=== PATIENT | female | born 1955 | race Caucasian/White ===

== ENCOUNTER → 2016-12-24 | Outpatient (CLI) | payer BC ==
[2016-12-24 11:20] LABS: CHLORIDE,CL 108 mmol/L (98-110); SODIUM,NA 142 mmol/L (136-146)
--- NOTE | 2016-12-24 14:07 | CR ---
EXAMINATION: Abdomen HISTORY: Pain COMPARISON: None TECHNIQUE: AP and upright views of the abdomen FINDINGS: There is no free air under the diaphragm. Lung bases appear clear. There is a mild amount of stool and gas-filled the colon without evidence of a small bowel obstruction. No abnormal calcifi cations project over the kidneys. There is a rounded calcification projecting over the right L3 para vertebral region with central lucency, likely a vascular calcification. The osseous structures appea r intact. No organomegaly. IMPRESSION: Grossly unremarkable abdominal films.
== END ==
LOC: MW.CHFP 10:41
PROVIDERS: ATTEND Nurse Practitioner Family
DX: R10.9 Unspecified abdominal pain (principal)
CPT/HCPCS: 36415; 74020; 74020-26; 80053; 81001; 85025; 86677

== ENCOUNTER 2019-06-18 22:47 | Emergency (ER) | payer MEDICARE, OTHER ==
[2019-06-18] MEDS ORDERED: Sodium Chloride 0.9% 2.5 ML Syringe FLUSH PRN (23:02)
[2019-06-18] MEDS ORDERED: Sodium Chloride 0.9% 10 ML Syringe FLUSH PRN (23:02)
[2019-06-18] MEDS ORDERED: Sodium Chloride 0.9% 1,000 ML IV ONE (23:10)
[2019-06-18] MEDS ORDERED: Morphine 2 MG/ML Syringe IVPUSH ONE (23:10)
[2019-06-18] MEDS ORDERED: Pantoprazole 40 MG Vial IVPUSH ONE (23:10)
[2019-06-18] MEDS ORDERED: Ondansetron 4 MG/2 ML SDV IVPUSH ONE (23:10)
--- NOTE | 2019-06-18 23:15 | EDM.PDOC ---
ED HPI GENERAL MEDICAL PROBLEM - General Chief Complaint: Chest Pain Stated Complaint: STOMACH AND BACK PAIN Time Seen by Provider: 06/18/19 22:55 - History of Present Illness INITIAL COMMENTS - FREE TEXT/NARRATIVE: HISTORY AND PHYSICAL: History of present illness: The patient is a 64-year-old female who follows with Dr. Baca in our clinic and also sees a balance sheet analyst at [facility] in [place] and has a history of hypertrophic cardiomyopathy hypercholesterolemia and kidney stones and presents with a 5 hour history of bilateral bandlike upper abdominal pain that radiates to her back. The patient says that she sees her balance sheet analyst just once a year and has had a heart catheter in the past but it was anywhere between 5 and 10 years ago. She sees her primary care physician regularly or checkups. The patient says that she had a normal day yesterday without any systemic issues upper respiratory symptoms chest pain or abdominal pain and was at home and started having this bandlike upper abdominal pain more in the epigastrium but radiating to bilateral upper quadrants. She said that it then seemed to be more underneath her left breast and then she could feel it in her upper back as well. She had no nausea or vomiting or diarrhea and had a normal bowel movement earlier today. She has not had black or bloody stools and has had no food intolerance. She's had no recent dietary changes nor she eaten any rich foods or fatty foods more than usual. She's had no fever with these symptoms no discrete chest pain and no shortness of breath. She denies any recent trauma and has only a total abdominal hysterectomy done laparoscopically as her abdominal surgical procedure. She says that she does not get heartburn very often but with this discomfort she felt like she had some gas like maybe if she burped she would feel better but she did not take any [id number] antacids or any pain medication. She did take Some Benadryl. She's had no urinary symptoms and she has no midline back pain or neurosensory changes or weakness in her extremities. She has no lower abdominal pain and she describes the pain as kind of a deep achy type of pain without burning. The patient has an AICD in place because of her hypertrophic cardiomyopathy Review of systems: As per history of present illness and below otherwise all systems reviewed and negative. Past medical history: As per history of present illness and as reviewed below otherwise noncontributory. Surgical history: As per history of present illness and as reviewed below otherwise noncontributory. Social history: No reported history of drug or alcohol abuse. Family history: As per history of present illness and as reviewed below otherwise noncontributory. Physical exam: General: Well-developed well-nourished overweight female who is nontoxic and vital signs are noted by me. She moves easily in the ED that when she goes from supine to sitting she feels some distress due to the abdominal pain. She is speaking clearly and is not breathless HEENT: Atraumatic, normocephalic, pupils reactive, negative for conjunctival pallor or scleral icterus, mucous membranes moist, throat clear, neck supple, nontender, trachea midline. Lungs: Clear to auscultation, breath sounds equal bilaterally, chest nontender. AICD is noted in the left upper chest wall Heart: S1S2, regular rate and rhythm no overt murmurs Abdomen: Soft, nondistended, bowel sounds are hypoactive and there is no tympany on percussion. There is diffuse upper abdominal tenderness mostly in the epigastrium but also bilateral upper quadrants right greater than left and there is no rebound or guarding Negative for masses or hepatosplenomegaly. Negative for costovertebral tenderness. Pelvis: Stable nontender. Genitourinary: Deferred. Rectal: Deferred. Extremities: Atraumatic, negative for cords or calf pain. Neurovascular unremarkable. No pedal edema or leg asymmetry Neuro: Awake, alert, oriented. Cranial nerves II through XII unremarkable. Cerebellum unremarkable. Motor and sensory unremarkable throughout. Exam nonfocal. Diagnostics: EKG CBC CMP INR troponin amylase lipase chest x-ray UA with reflex CT scan of the abdomen and pelvis Therapeutics: IV O2 monitor IV fluids Zofran and morphine Protonix All testing results were discussed with the patient and she was offered observation admission for cardiac as I told her that her presentation is very atypical for that but in light of her history that is still something that we are thinking about and cannot rule out here. She states that she would not like to be admitted and declines and would prefer outpatient follow-up in the clinic. Advised her on reasons to return. She currently says that she is not having the discomfort she presented the with. Impression: Upper abdominal pain Definitive disposition and diagnosis as appropriate pending reevaluation and review of above. Epigastric Pain Score (Numeric/FACES): 5 - Related Data Allergies Allergy/AdvReac Type Severity Reaction Status Date / Time house dust Allergy Difficulty Verified 06/18/19 22:57 Breathing latex Allergy Rash Verified 06/18/19 22:57 Home Meds: Home Meds Calcium Carb & Citrate/Vit D3 [Citracal + D ER] 2 tab PO BID 08/21/14 [History] Cetirizine HCl [Zyrtec] 10 mg PO DAILY 08/21/14 [History] Fish Oil/DHA/EPA [Fish Oil 1,200 MG] 1 tab PO BID 08/21/14 [History] Metoprolol Tartrate 12.5 mg PO BID 08/21/14 [History] Aspirin [Tracey Chewable] 81 mg PO DAILY 11/17/15 [History] Ezetimibe [Zetia] 10 mg PO BEDTIME 11/17/15 [History] Past Medical History Cardiovascular History: Reports: Cardiomyopathy, High Cholesterol, Pacemaker, Other (See Below) Other Cardiovascular History: defibrillator - Infectious Disease History Infectious Disease History: Reports: Chicken Pox - Past Surgical History HEENT Surgical History: Reports: Tonsillectomy Female Surgical History: Reports: Hysterectomy Musculoskeletal Surgical History: Reports: Other (See Below) Social & Family History - Family History Family Medical History: Noncontributory - Tobacco Use Smoking Status *Q: Never Smoker Second Hand Smoke Exposure: No - Caffeine Use Caffeine Use: Reports: Tea - Recreational Drug Use Recreational Drug Use: No ED ROS GENERAL - Review of Systems Review Of Systems: ROS reveals no pertinent complaints other than HPI. ED EXAM, GENERAL - Physical Exam Exam: See Below (See dictation) Course - Vital Signs Last Recorded V/S: Last Vital Signs Temp 35.7 C 06/18/19 22:59 Pulse 90 06/19/19 00:38 Resp 16 06/19/19 00:38 BP 117/57 L 06/19/19 00:38 Pulse Ox 96 06/19/19 00:38 - Orders/Labs/Meds Orders: Active Orders 24 hr Category Date Time Status Cardiac Monitoring [RC] . DIRECTED Care 06/18/19 22:56 Active EKG Documentation Completion [RC] STAT Care 06/18/19 22:56 Active Oxygen Therapy, ED [RC] ASDIRECTED Care 06/18/19 22:56 Active Pulse Oximetry [RC] ASDIRECTED Care 06/18/19 22:56 Active Sodium Chloride 0.9% [Saline Flush] Med 06/18/19 23:02 Active 10 ml FLUSH ASDIRECTED PRN Sodium Chloride 0.9% [Saline Flush] Med 06/18/19 23:02 Active 2.5 ml FLUSH ASDIRECTED PRN Saline Lock Insert [OM.PC] Stat Oth 06/18/19 23:02 Ordered Medication Orders Sodium Chloride (Saline Flush) 10 ml FLUSH ASDIRECTED PRN PRN Reason: Keep Vein Open Last Admin: 06/18/19 23:16 Dose: 10 ml Sodium Chloride (Saline Flush) 2.5 ml FLUSH ASDIRECTED PRN PRN Reason: Keep Vein Open Last Admin: 06/18/19 23:16 Dose: 2.5 ml Labs: Laboratory Tests 06/18/19 06/18/19 06/18/19 Range/Units 23:05 23:05 23:05 WBC 4.90 (4.0-11.0) K/uL RBC 4.25 L (4.30-5.90) M/uL Hgb 13.2 (12.0-16.0) g/dL Hct 38.2 (36.0-46.0) % MCV 89.9 (80.0-98.0) fL MCH 31.1 (27.0-32.0) pg MCHC 34.6 (31.0-37.0) g/dL RDW Std Deviation 44.6 (28.0-62.0) fl RDW Coeff of Mariusz 14 (11.0-15.0) % Plt Count 145 L (150-400) K/uL MPV 9.10 (7.40-12.00) fL Neut % (Auto) 53.8 (48.0-80.0) % Lymph % (Auto) 36.7 (16.0-40.0) % [place] % (Auto) 7.1 (0.0-15.0) % Eos % (Auto) 2.0 (0.0-7.0) % Baso % (Auto) 0.4 (0.0-1.5) % Neut # (Auto) 2.6 (1.4-5.7) K/uL Lymph # (Auto) 1.8 (0.6-2.4) K/uL [place] # (Auto) 0.4 (0.0-0.8) K/uL Eos # (Auto) 0.1 (0.0-0.7) K/uL Baso # (Auto) 0.0 (0.0-0.1) K/uL Nucleated RBC % 0.0 /100WBC Nucleated RBCs # 0 K/uL INR 0.88 Sodium 141 (136-145) mmol/L Potassium 4.0 (3.5-5.1) mmol/L Chloride 104 (98-107) mmol/L Carbon Dioxide 26.9 (21.0-32.0) mmol/L BUN 14 (7.0-18.0) mg/dL Creatinine 0.9 (0.6-1.0) mg/dL Est Cr Clr Drug Dosing 49.29 mL/min Estimated GFR (MDRD) > 60.0 ml/min Glucose 119 H (74-106) mg/dL Calcium 9.0 (8.5-10.1) mg/dL Total Bilirubin 0.2 (0.2-1.0) mg/dL AST 20 (15-37) IU/L ALT 22 (14-63) IU/L Alkaline Phosphatase 100 (46-116) U/L Troponin I < 0.050 (0.000-0.056) ng/mL Total Protein 7.4 (6.4-8.2) g/dL Albumin 4.0 (3.4-5.0) g/dL Globulin 3.4 (2.6-4.0) g/dL Albumin/Globulin Ratio 1.2 (0.9-1.6) Amylase 35 (25-115) U/L Lipase 129 (73-393) U/L Urine Color Urine Appearance Urine pH (5.0-8.0) Ur Specific [place] (1.001-1.035) Urine Protein (NEGATIVE) mg/dL Urine Glucose (UA) (NEGATIVE) mg/dL Urine Ketones (NEGATIVE) mg/dL Urine Occult Blood (NEGATIVE) Urine Nitrite (NEGATIVE) Urine Bilirubin (NEGATIVE) Urine Urobilinogen (<2.0) EU/dL Ur Leukocyte Esterase (NEGATIVE) 06/19/19 Range/Units 00:26 WBC (4.0-11.0) K/uL RBC (4.30-5.90) M/uL Hgb (12.0-16.0) g/dL Hct (36.0-46.0) % MCV (80.0-98.0) fL MCH (27.0-32.0) pg MCHC (31.0-37.0) g/dL RDW Std Deviation (28.0-62.0) fl RDW Coeff of Mariusz (11.0-15.0) % Plt Count (150-400) K/uL MPV (7.40-12.00) fL Neut % (Auto) (48.0-80.0) % Lymph % (Auto) (16.0-40.0) % [place] % (Auto) (0.0-15.0) % Eos % (Auto) (0.0-7.0) % Baso % (Auto) (0.0-1.5) % Neut # (Auto) (1.4-5.7) K/uL Lymph # (Auto) (0.6-2.4) K/uL [place] # (Auto) (0.0-0.8) K/uL Eos # (Auto) (0.0-0.7) K/uL Baso # (Auto) (0.0-0.1) K/uL Nucleated RBC % /100WBC Nucleated RBCs # K/uL INR Sodium (136-145) mmol/L Potassium (3.5-5.1) mmol/L Chloride (98-107) mmol/L Carbon Dioxide (21.0-32.0) mmol/L BUN (7.0-18.0) mg/dL Creatinine (0.6-1.0) mg/dL Est Cr Clr Drug Dosing mL/min Estimated GFR (MDRD) ml/min Glucose (74-106) mg/dL Calcium (8.5-10.1) mg/dL Total Bilirubin (0.2-1.0) mg/dL AST (15-37) IU/L ALT (14-63) IU/L Alkaline Phosphatase (46-116) U/L Troponin I (0.000-0.056) ng/mL Total Protein (6.4-8.2) g/dL Albumin (3.4-5.0) g/dL Globulin (2.6-4.0) g/dL Albumin/Globulin Ratio (0.9-1.6) Amylase (25-115) U/L Lipase (73-393) U/L Urine Color YELLOW Urine Appearance CLEAR Urine pH 6.0 (5.0-8.0) Ur Specific [place] 1.010 (1.001-1.035) Urine Protein NEGATIVE (NEGATIVE) mg/dL Urine Glucose (UA) NEGATIVE (NEGATIVE) mg/dL Urine Ketones NEGATIVE (NEGATIVE) mg/dL Urine Occult Blood NEGATIVE (NEGATIVE) Urine Nitrite NEGATIVE (NEGATIVE) Urine Bilirubin NEGATIVE (NEGATIVE) Urine Urobilinogen 0.2 (<2.0) EU/dL Ur Leukocyte Esterase NEGATIVE (NEGATIVE) Meds: Medications Generic Name Dose Route Start Last Admin Trade Name Freq PRN Reason Stop Dose Admin Sodium Chloride 10 ml 06/18/19 23:02 06/18/19 23:16 Saline Flush FLUSH 10 ml ASDIRECTED PRN Administration Keep Vein Open Sodium Chloride 2.5 ml 06/18/19 23:02 06/18/19 23:16 Saline Flush FLUSH 2.5 ml ASDIRECTED PRN Administration Keep Vein Open Discontinued Medications Generic Name Dose Route Start Last Admin Trade Name Freq PRN Reason Stop Dose Admin Sodium Chloride 1,000 mls @ 999 mls/hr 06/18/19 23:10 06/18/19 23:16 Normal Saline IV 06/19/19 00:10 999 mls/hr STAT ONE Administration Iopamidol 100 ml 06/19/19 00:28 06/19/19 00:29 Isovue-370 (76%) IVPUSH 06/19/19 00:29 100 ml ONETIME STA Administration Morphine Sulfate 2 mg 06/18/19 23:10 06/18/19 23:16 Morphine IVPUSH 06/18/19 23:11 2 mg ONETIME ONE Administration Ondansetron HCl 4 mg 06/18/19 23:10 06/18/19 23:16 Zofran IVPUSH 06/18/19 23:11 4 mg ONETIME ONE Administration Pantoprazole Sodium 80 mg 06/18/19 23:10 06/18/19 23:17 Protonix Iv IVPUSH 06/18/19 23:11 80 mg .BOLUS ONE Administration Departure - Departure Time of Disposition: 00:59 Disposition: Home, Self-Care 01 Condition: Good Clinical Impression: Upper abdominal pain - Discharge Information Referrals: Sierra Baca MD [Primary Care Provider] - Forms: ED Department Discharge Additional Instructions: The following information is given to patients seen in the emergency department who are being discharged to home. This information is to outline your options for follow-up care. We provide all patients seen in our emergency department with a follow-up referral. The need for follow-up, as well as the timing and circumstances, are variable depending upon the specifics of your emergency department visit. If you don't have a primary care physician on staff, we will provide you with a referral. We always advise you to contact your personal physician following an emergency department visit to inform them of the circumstance of the visit and for follow-up with them and/or the need for any referrals to a consulting specialist. The emergency department will also refer you to a specialist when appropriate. This referral assures that you have the opportunity for followup care with a specialist. All of these measure are taken in an effort to provide you with optimal care, which includes your followup. Under all circumstances we always encourage you to contact your private physician who remains a resource for coordinating your care. When calling for followup care, please make the office aware that this follow-up is from your recent emergency room visit. If for any reason you are refused follow-up, please contact the [facility] emergency department at and ask to speak to the emergency department charge nurse. [facility] Primary care- Internal [place] [address] Try to eat a more healthy diet as we discussed and please call the clinic in the morning and schedule a follow-up appointment for further testing and reevaluation. Return to ER as needed and as discussed - My Orders Last 24 Hours: My Active Orders 06/18/19 22:56 Cardiac Monitoring [RC] . DIRECTED EKG Documentation Completion [RC] STAT Oxygen Therapy, ED [RC] ASDIRECTED Pulse Oximetry [RC] ASDIRECTED 06/18/19 23:02 Sodium Chloride 0.9% [Saline Flush] 10 ml FLUSH ASDIRECTED PRN Sodium Chloride 0.9% [Saline Flush] 2.5 ml FLUSH ASDIRECTED PRN Saline Lock Insert [OM.PC] Stat - Assessment/Plan Last 24 Hours: My Active Orders 06/18/19 22:56 Cardiac Monitoring [RC] . DIRECTED EKG Documentation Completion [RC] STAT Oxygen Therapy, ED [RC] ASDIRECTED Pulse Oximetry [RC] ASDIRECTED 06/18/19 23:02 Sodium Chloride 0.9% [Saline Flush] 10 ml FLUSH ASDIRECTED PRN Sodium Chloride 0.9% [Saline Flush] 2.5 ml FLUSH ASDIRECTED PRN Saline Lock Insert [OM.PC] Stat
[2019-06-18 23:36] LABS: BLOOD UREA NITROGEN,BUN 14 mg/dL (7.0-18.0); CARBON DIOXIDE,CO2 26.9 mmol/L (21.0-32.0); CHLORIDE,CL 104 mmol/L (98-107); GLUCOSE RANDOM 119 mg/dL (74-106); LIPASE 129 U/L (73-393); SODIUM,NA 141 mmol/L (136-145)
--- NOTE | 2019-06-18 23:45 | CR ---
INDICATION: Chest pain TECHNIQUE: Frontal view of the chest. COMPARISON: Single view chest 11/17/2015 FINDINGS/IMPRESSION: The lungs are clear. There is no sizable pleural effusion or pneumothorax. There is stable mild cardiomegaly. Single lead AICD is again demonstrated. The visualized osseous structures are unremarkable. Dictated by Emile Blair MD @ Jun 18 2019 11:43PM Signed by Dr. Emile Blair @ Jun 18 2019 11:44PM
[2019-06-19] MEDS ORDERED: Iopamidol 755 Mg/ML 100 ML Bottle IVPUSH STA (00:28)
--- NOTE | 2019-06-19 00:50 | CT ---
Indication: Upper abdominal pain and bloating x6 hours Technique: Contrast enhanced axial CT imaging through the abdomen and pelvis. 100 mL Isovue 370 contrast agent was administered intravenously. Sagittal and coronal reconstructions are provided. Comparison: CT abdomen pelvis without contrast 01/31/2013 Findings: There is slight decreased attenuation of the liver parenchyma suggestive of steatosis. There is no significant abnormality of the gallbladder, spleen, pancreas, and adrenal glands. There is normal renal parenchymal enhancement without hydronephrosis. A parapelvic renal cyst is noted on the left. There is normal enhancement of the portal venous system. There is normal caliber of the abdominal aorta. The stomach and duodenum are unremarkable. There are no abnormally dilated small bowel loops. The appendix is noninflamed. Diverticulosis is noted in the proximal transverse colon. There is no colonic wall thickening or pericolonic inflammatory stranding. There is no abdominal lymphadenopathy. The uterus is noted to be absent. The visualized osseous structures are unremarkable. The included lung bases are clear. Impression: 1. No acute process demonstrated in the abdomen and pelvis. 2. Slightly decreased attenuation of the liver parenchyma suggestive of steatosis. Please note that all CT scans at this facility use dose modulation, iterative reconstruction, and/or weight-based dosing when appropriate to reduce radiation dose to as low as reasonably achievable. Dictated by Emile Blair MD @ Jun 19 2019 12:49AM Signed by Dr. Emile Blair @ Jun 19 2019 12:49AM
[2019-06-19 00:58] VITALS: BP 119/77; PULSE 70
== END 2019-06-19 01:11 | disposition home or self-care (01) ==
LOC: MW.ED 22:47
DX: R10.11 Right upper quadrant pain (principal); R10.13 Epigastric pain; R10.12 Left upper quadrant pain; Z79.82 Long term (current) use of aspirin; Z95.810 Presence of automatic (implantable) cardiac defibrillator
CPT/HCPCS: 36415; 71045; 74177; 80053; 81003; 82150; 83690; 84484; 85025; 85610; 93005; 96361; 96374; 96375; 99285; C9113; J2270; J2405; J7040; Q9967

== ENCOUNTER 2019-07-06 08:13 | Day surgery (SDC) | payer MEDICARE, OTHER ==
[~2019-07-06 08:13] MED LIST: Lactated Ringers 1,000 ML IV SCH
[2019-07-06] MEDS ORDERED: Midazolam 1 MG/ML 2 ML SDV ONE (08:26)
[2019-07-06] MEDS ORDERED: Propofol 200 MG/20 ML SDV ONE ×2 (08:26→10:03)
[2019-07-06] MEDS ORDERED: Lidocaine 2% 5 ML SDV ONE (08:26)
[2019-07-06] MEDS ORDERED: fentaNYL 100 MCG/2 ML SDV ONE (08:26)
--- NOTE | 2019-07-06 08:53 | PCM.PREANE ---
Preanesthetic Assessment - Anesthesia/Transfusion/Family Hx Anesthesia History: Prior Anesthesia Reaction Family History of Anesthesia Reaction: No Transfusion History: No Prior Transfusion(s) Intubation History: Unknown - Review of Systems General: No Symptoms Pulmonary: No Symptoms Cardiovascular: No Symptoms Gastrointestinal: Constipation, Other (h/o colon polyps ') Neurological: No Symptoms Other: Reports: None - Physical Assessment Height: 5 ft 2.5 in Weight: 79.379 kg ASA Class: 3 Mental Status: Alert & Oriented x3 Airway Class: Mallampati = 2 Dentition: Reports: Normal Dentition Thyro-Mental Finger Breadths: 3 Mouth Opening Finger Breadths: 3 ROM/Head Extension: Full Lungs: Clear to Auscultation, Normal Respiratory Effort Cardiovascular: Regular Rate, Regular Rhythm - Allergies Allergies/Adverse Reactions: Allergies Allergy/AdvReac Type Severity Reaction Status Date / Time Beef Containing Products Allergy Nausea and Verified 07/01/19 10:03 Vomiting house dust Allergy Difficulty Verified 07/01/19 10:03 Breathing latex Allergy Rash Verified 07/01/19 10:03 milk Allergy Nausea and Verified 07/01/19 10:03 Vomiting - Blood Blood Available: No - Anesthesia Plan Pre-Op Medication Ordered: None - Acknowledgements Anesthesia Type Planned: MAC Pt an Appropriate Candidate for the Planned Anesthesia: Yes Alternatives and Risks of Anesthesia Discussed w Pt/Guardian: Yes Pt/Guardian Understands and Agrees with Anesthesia Plan: Yes PreAnesthesia Questionnaire HEENT History: Reports: Allergic Rhinitis Cardiovascular History: Reports: Arrhythmia, Automatic Implantable Cardioverter Defibrillators, Heart Murmur, High Cholesterol Other Cardiovascular History: hx of hypertropic cardiomyopathy, hx of mild mitral and tricuspid valve regurgitation, takes metoprolol for arrythmias Gastrointestinal History: Reports: Colon Polyp, Fatty Liver, GERD Genitourinary History: Reports: Renal Calculus AND [employer] History: Reports: Musculoskeletal History: Reports: Arthritis Neurological History: Reports: Seizure Other Neuro History: hx of seizure as a child- no cause or treatment Endocrine/Metabolic History: Reports: Osteopenia, Other (See Below) Other Endocrine/Metabolic History: hx of Hashimotos thyroiditis (has a thyroid cyst) - Infectious Disease History Infectious Disease History: Reports: Chicken Pox - Past Surgical History Head Surgeries/Procedures: Reports: None HEENT Surgical History: Reports: Tonsillectomy Cardiovascular Surgical History: Reports: AICD GI Surgical History: Reports: Colonoscopy ( and ) Female Surgical History: Reports: Breast Biopsy, Cystectomy, Hysterectomy Musculoskeletal Surgical History: Reports: Other (See Below) Other Musculoskeletal Surgeries/Procedures:: hx of cyst removal from tendon on right wrist and finger - SUBSTANCE USE Smoking Status *Q: Never Smoker Recreational Drug Use History: No - HOME MEDS Home Medications: Home Meds Calcium Carb, Citrate/Vit D3 [Citracal + D ER] 1 tab PO DAILY 08/21/14 [History] Cetirizine HCl [Zyrtec] 10 mg PO DAILY 08/21/14 [History] Metoprolol Tartrate 100 mg PO BID 08/21/14 [History] Aspirin [Tracey Chewable] 81 mg PO DAILY 11/17/15 [History] Ezetimibe [Zetia] 10 mg PO BEDTIME 11/17/15 [History] Omeprazole Magnesium [Prilosec Otc] 20 mg PO DAILY 07/01/19 [History] - CURRENT (IN HOUSE) MEDS Current Meds: Current Medications Lactated Ringer's (Ringers, Lactated) 1,000 mls @ 125 mls/hr IV ASDIRECTED NOEMI Discontinued Medications Fentanyl (Sublimaze) Confirm Administered Dose 100 mcg .ROUTE .STK-MED ONE Stop: 07/06/19 08:27 Lidocaine (Xylocaine-Mpf 2%) Confirm Administered Dose 5 ml .ROUTE .STK-MED ONE Stop: 07/06/19 08:27 Midazolam HCl (Versed 1 Mg/Ml) Confirm Administered Dose 2 mg .ROUTE .STK-MED ONE Stop: 07/06/19 08:27 Propofol (Diprivan 20 Ml) Confirm Administered Dose 200 mg .ROUTE .STK-MED ONE Stop: 07/06/19 08:27
[2019-07-06] MEDS ORDERED: Glycopyrrolate 0.2 MG/ML SDV ONE ×2 (10:09→10:14)
--- NOTE | 2019-07-06 10:40 | PCM.OPNOTE ---
- General Post-Op/Procedure Note Date of Surgery/Procedure: 07/06/19 Operative Procedure(s): Esophagogastroduodenoscopy with gastric biopsies and gastric polypectomy. Colonoscopy with cold ascending colon polypectomy. Pre Op Diagnosis: Progressive heartburn. Change in bowel habits. Post-Op Diagnosis: Mild chronic gastritis with gastric polyps. Ascending colon polyp. Sigmoid diverticulosis. Anesthesia Technique: MAC (ASA III) Primary Surgeon: Yuriy Hankins Formulation Scientist: Tawana Palomares Condition: Good Free Text/Narrative:: DICTATION [id number] CPT CODE [id number]
[2019-07-06] MEDS ORDERED: Lactated Ringers 1,000 ML IV SCH (10:45)
--- NOTE | 2019-07-06 10:53 | PCM.POSTAN ---
POST ANESTHESIA ASSESSMENT - MENTAL STATUS Mental Status: Alert, Oriented - VITAL SIGNS Vital Signs: Last Vital Signs Temp 36 C 07/06/19 10:35 Pulse 75 07/06/19 10:50 Resp 20 07/06/19 10:50 BP 96/47 L 07/06/19 10:50 Pulse Ox 94 L 07/06/19 10:50 - RESPIRATORY Respiratory Status: Respiratory Rate WNL, Airway Patent, O2 Saturation Stable - CARDIOVASCULAR CV Status: Pulse Rate WNL, Blood Pressure Stable - GASTROINTESTINAL GI Status: No Symptoms - PAIN Pain Score: 0 - POST OP HYDRATION Hydration Status: Adequate & Stable - OBSERVATIONS Free Text/Narrative:: No anesthesia problems
--- NOTE | 2019-07-06 11:12 | PCM48HPAN ---
Post Anesthesia Note - EVALUATION WITHIN 48HRS OF ANESTHETIC Vital Signs in Normal Range: Yes Patient Participated in Evaluation: Yes Respiratory Function Stable: Yes Airway Patent: Yes Cardiovascular Function Stable: Yes Hydration Status Stable: Yes Pain Control Satisfactory: Yes Nausea and Vomiting Control Satisfactory: Yes Mental Status Recovered: Yes Vital Signs: Last Vital Signs Temp 35.9 C 07/06/19 10:55 Pulse 70 07/06/19 10:55 Resp 16 07/06/19 10:55 BP 92/54 L 07/06/19 10:55 Pulse Ox 94 L 07/06/19 10:55 - COMMENTS/OBSERVATIONS Free Text/Narrative:: No anesthesia problems
[2019-07-06 11:44] VITALS: BP 108/55; PULSE 67
--- NOTE | 2019-07-07 07:54 | OR ---
SURGEON: Yuriy Hankins M.D. DATE OF PROCEDURE: 07/06/2019 OPERATION PERFORMED: Esophagogastroduodenoscopy with biopsy. PRIMARY SURGEON: Yuriy Hankins MD. SPECIAL ASSEMBLIES SUPERVISOR: kennel assistant: Dr. Palomares, PGY2. ANESTHESIA: MAC. ASA CLASSIFICATION: III. PREOPERATIVE DIAGNOSIS: Progressive heartburn. POSTOPERATIVE DIAGNOSES: 1. Mild gastritis. 2. Gastric polyps. DESCRIPTION OF PROCEDURE: The patient was taken to the endoscopy room and positioned on the endoscopy table in the left lateral decubitus position. Time-out was called for appropriate identification of the patient and procedure. Monitored anesthesia care was provided. A bite block was placed between the patient's teeth. The gastroscope was inserted through the bite block into the oropharynx and advanced with minimal difficulty through the esophagus and stomach into the duodenum where examination was now carried out in a retrograde fashion. The duodenum shows no acute inflammatory changes or ulcerations. The stomach does show mild gastritis. Antral biopsies were obtained to look for the presence of Helicobacter pylori. The gastroscope was retroflexed to visualize the proximal stomach where some very small hyperplastic appearing polyps were identified. Separate biopsies of the polyps were obtained. The GE junction was well defined and showed no acute inflammatory changes or ulcerations. The esophagus demonstrated good contractility. No mid or proximal lesions were identified. The vocal cords were briefly visualized as the scope was withdrawn and noted to move symmetrically. The gastroscope was then removed with the patient having tolerated this portion of the procedure well. Following colonoscopy, she was taken to recovery room in stable condition. OTD / DAMIEN /[id number]
--- NOTE | 2019-07-07 07:57 | OR ---
SURGEON: Yuriy Hankins M.D. DATE OF PROCEDURE: 07/06/2019 OPERATION PERFORMED: Colonoscopy with cold ascending colon polypectomy. PRIMARY SURGEON: Yuriy Hankins MD. FACER OPERATOR: assistant professor of german: Dr. Palomares. ANESTHESIA: MAC. ASA CLASSIFICATION: III. PREOPERATIVE DIAGNOSIS: Change in bowel habits. POSTOPERATIVE DIAGNOSES: 1. Small ascending colon polyp. 2. Mild sigmoid diverticulosis. DESCRIPTION OF PROCEDURE: With the patient having completed esophagogastroduodenoscopy, she was maintained in the left lateral decubitus position. The colonoscope was inserted into the rectum and advanced with minimal difficulty to the cecum, where the colonoscope was retroflexed to visualize the ascending colon from below. The colonoscope was then straightened and slowly withdrawn. The cecum did not show any polyps. One small polyp was encountered in the ascending colon, and this was removed with the cold biopsy forceps. The remainder of the ascending colon, hepatic flexure, transverse colon, splenic flexure, descending colon, sigmoid colon, and rectum showed no tumors or polyps. A few scattered diverticula were noted in the sigmoid colon. No stricture, spasm, or bleeding was noted. No other lesions were noted within the colon. There was no evidence of inflammatory bowel disease. Once the colonoscope was withdrawn to the rectum, it was retroflexed to visualize the anal orifice from above. No tumors, polyps, or acute hemorrhoidal changes were noted. The colonoscope was then straightened, the rectum aspirated, and the colonoscope removed. The patient tolerated the procedure well and was taken to recovery room in stable condition. TOD / DAMIEN /[id number]
== END 2019-07-06 11:22 | disposition home or self-care (01) ==
LOC: MW.SDS 08:13
PROVIDERS: ATTEND Surgery
DX: D12.2 Benign neoplasm of ascending colon (principal); K57.30 Diverticulosis of large intestine without perforation or abscess without bleeding; K31.7 Polyp of stomach and duodenum; K29.50 Unspecified chronic gastritis without bleeding; E78.00 Pure hypercholesterolemia, unspecified; I10 Essential (primary) hypertension; E66.9 Obesity, unspecified; Z86.010 Personal history of colon polyps; Z91.09 Other allergy status, other than to drugs and biological substances; Z79.82 Long term (current) use of aspirin; Z79.899 Other long term (current) drug therapy; Z91.018 Allergy to other foods; Z68.31 Body mass index [BMI] 31.0-31.9, adult
CPT/HCPCS: 43239; 45380; 88305; 88312; J2001; J2250; J2704; J3010; J3490; J7120

== ENCOUNTER 2019-08-14 07:29 | Day surgery (SDC) | payer MEDICARE, OTHER ==
[~2019-08-14 07:29] MED LIST changes: +Bupivacaine 0.5% 10 ML SDV ONE; +ceFAZolin 1 GM Vial ONE; +cefOXitin 2 GM in Premix Bag 1 BAG IV ONE
[2019-08-14] MEDS ORDERED: Midazolam 1 MG/ML 2 ML SDV ONE (08:09)
[2019-08-14] MEDS ORDERED: Rocuronium 100 MG/10 ML Syringe ONE (08:09)
[2019-08-14] MEDS ORDERED: fentaNYL 100 MCG/2 ML SDV ONE (08:09)
[2019-08-14] MEDS ORDERED: Propofol 200 MG/20 ML SDV ONE (08:09)
[2019-08-14] MEDS ORDERED: Lidocaine 2% 5 ML SDV ONE (08:09)
[2019-08-14] MEDS ORDERED: ceFAZolin/Dextrose,Iso-Osmotic 2 GM/50 ML Duplex Bag IV ONE (08:21)
[2019-08-14] MEDS ORDERED: Scopolamine 1.5 MG Transdermal Patch TRDERM PRN (08:30)
--- NOTE | 2019-08-14 08:37 | PCM.PREANE ---
Preanesthetic Assessment - Anesthesia/Transfusion/Family Hx Anesthesia History: Prior Anesthesia Reaction Family History of Anesthesia Reaction: No Transfusion History: No Prior Transfusion(s) Intubation History: Unknown - Review of Systems General: No Symptoms Pulmonary: No Symptoms Cardiovascular: No Symptoms Neurological: No Symptoms Other: Reports: None - Physical Assessment NPO Status Date: 08/13/19 Vital Signs: Last Vital Signs Temp 96.4 F 08/14/19 07:50 Pulse 57 L 08/14/19 07:50 Resp 16 08/14/19 07:50 BP 128/51 L 08/14/19 07:50 Pulse Ox 98 08/14/19 07:50 Height: 5 ft 2 in Weight: 76.204 kg ASA Class: 3 Mental Status: Alert & Oriented x3 Airway Class: Mallampati = 2 Dentition: Reports: Normal Dentition ROM/Head Extension: Full Lungs: Clear to Auscultation, Normal Respiratory Effort Cardiovascular: Regular Rate, Regular Rhythm - Allergies Allergies/Adverse Reactions: Allergies Allergy/AdvReac Type Severity Reaction Status Date / Time Beef Containing Products Allergy Nausea and Verified 08/14/19 07:58 Vomiting dicyclomine Allergy Itching Verified 08/14/19 07:58 house dust Allergy Difficulty Verified 08/14/19 07:58 Breathing latex Allergy Rash Verified 08/14/19 07:58 milk Allergy Nausea and Verified 08/14/19 07:58 Vomiting - Blood Blood Available: No - Anesthesia Plan Pre-Op Medication Ordered: Other (scop) - Acknowledgements Anesthesia Type Planned: General Anesthesia Pt an Appropriate Candidate for the Planned Anesthesia: Yes Alternatives and Risks of Anesthesia Discussed w Pt/Guardian: Yes Pt/Guardian Understands and Agrees with Anesthesia Plan: Yes Additional Comments: anes prob list: hypertrophic cardiomyopathy (formerly known as IHHS and asymetric septal hypertrophy) low gradient but enough to make the Dx, EF 65%, has AICD placed for tachyarrythmia of psvt and/or NSVT, has family hx of sudden . normal coronary arteries, GERD, HTN PLAN: avoid vasoconstrictors, avoid tachycardia, use magnet to disable AICD during surgery. PreAnesthesia Questionnaire HEENT History: Reports: Allergic Rhinitis, Other (See Below) Other HEENT History: wears glasses Cardiovascular History: Reports: Arrhythmia, Automatic Implantable Cardioverter Defibrillators, Heart Murmur, High Cholesterol Other Cardiovascular History: hx of hypertropic cardiomyopathy, hx of mild mitral and tricuspid valve regurgitation, takes metoprolol for arrythmias Respiratory History: Reports: None Gastrointestinal History: Reports: Colon Polyp, Diverticulosis, Fatty Liver Genitourinary History: Reports: Renal Calculus FINISHED GOODS PLANNER History: Reports: Musculoskeletal History: Reports: Arthritis Neurological History: Reports: Seizure Other Neuro History: hx of seizure as a child- no cause or treatment Psychiatric History: Reports: None Endocrine/Metabolic History: Reports: Osteopenia, Other (See Below) Other Endocrine/Metabolic History: hx of Hashimotos thyroiditis (has a thyroid cyst) Hematologic History: Reports: None Immunologic History: Reports: None Oncologic (Cancer) History: Reports: None Dermatologic History: Reports: None - Infectious Disease History Infectious Disease History: Reports: Chicken Pox - Past Surgical History Head Surgeries/Procedures: Reports: None HEENT Surgical History: Reports: Tonsillectomy Cardiovascular Surgical History: Reports: AICD Other Cardiovascular Surgeries/Procedures: cardiac defibrillator, hx angiogram Respiratory Surgical History: Reports: None GI Surgical History: Reports: Colonoscopy, EGD Female Surgical History: Reports: Breast Biopsy, Cystectomy, Hysterectomy Other Female Surgeries/Procedures: hx laparoscopy with ovarian cystectomy Endocrine Surgical History: Reports: None Neurological Surgical History: Reports: None Musculoskeletal Surgical History: Reports: Other (See Below) Other Musculoskeletal Surgeries/Procedures:: hx of cyst removal from tendon on right wrist and finger Oncologic Surgical History: Reports: None Dermatological Surgical History: Reports: None - SUBSTANCE USE Smoking Status *Q: Never Smoker Recreational Drug Use History: No - HOME MEDS Home Medications: Home Meds Calcium Carb, Citrate/Vit D3 [Citracal + D ER] 1 tab PO DAILY 08/21/14 [History] Cetirizine HCl [Zyrtec] 10 mg PO DAILY PRN 08/21/14 [History] Metoprolol Tartrate 100 mg PO BID 08/21/14 [History] Aspirin [Tracey Chewable] 81 mg PO DAILY 11/17/15 [History] Ezetimibe [Zetia] 10 mg PO BEDTIME 11/17/15 [History] Loratadine [Claritin] 10 mg PO DAILY PRN 08/10/19 [History] - CURRENT (IN HOUSE) MEDS Current Meds: Current Medications Lactated Ringer's (Ringers, Lactated) 1,000 mls @ 125 mls/hr IV ASDIRECTED NOEMI Last Admin: 08/14/19 07:57 Dose: 125 mls/hr Discontinued Medications Bupivacaine HCl (Sensorcaine-Mpf 0.5%) Confirm Administered Dose 30 ml .ROUTE .STK-MED ONE Stop: 08/14/19 07:26 Cefazolin Sodium (Ancef) Confirm Administered Dose 1 gm .ROUTE .STK-MED ONE Stop: 08/14/19 07:25 Cefazolin Sodium/Dextrose (Ancef) Confirm Administered Dose 2 gm IV .STK-MED ONE Stop: 08/14/19 08:22 Fentanyl (Sublimaze) Confirm Administered Dose 100 mcg .ROUTE .STK-MED ONE Stop: 08/14/19 08:10 Cefoxitin Sodium 2 gm/ Premix 50 mls @ 100 mls/hr IV ONETIME ONE Stop: 08/14/19 07:29 Lidocaine (Xylocaine-Mpf 2%) Confirm Administered Dose 5 ml .ROUTE .STK-MED ONE Stop: 08/14/19 08:10 Midazolam HCl (Versed 1 Mg/Ml) Confirm Administered Dose 2 mg .ROUTE .STK-MED ONE Stop: 08/14/19 08:10 Propofol (Diprivan 20 Ml) Confirm Administered Dose 200 mg .ROUTE .STK-MED ONE Stop: 08/14/19 08:10 Rocuronium Toney (Zemuron) Confirm Administered Dose 100 mg .ROUTE .STK-MED ONE Stop: 08/14/19 08:10
[2019-08-14] MEDS ORDERED: cefOXitin 1 GM Vial ONE (09:19)
[2019-08-14] MEDS ORDERED: Sodium Chloride 0.9% 20 ML ONE (09:19)
[2019-08-14] MEDS ORDERED: HYDROmorphone 2 MG/ML Syringe ONE (09:42)
[2019-08-14] MEDS ORDERED: Ondansetron 4 MG/2 ML SDV ONE (09:43)
[2019-08-14] MEDS ORDERED: Neostigmine Methylsulfate 1 MG/ML 5 ML Syringe ONE (09:44)
[2019-08-14] MEDS ORDERED: Glycopyrrolate 0.2 MG/ML SDV ONE (09:44)
[2019-08-14] MEDS ORDERED: Ketorolac 30 MG/ML SDV ONE (10:11)
[2019-08-14] MEDS ORDERED: Promethazine 25 MG/ML SDV IM PRN (10:13)
[2019-08-14] MEDS ORDERED: fentaNYL 100 MCG/2 ML SDV IVPUSH PRN (10:13)
[2019-08-14] MEDS ORDERED: Meperidine PF 25 MG/ML Syringe IVPUSH PRN (10:13)
[2019-08-14] MEDS ORDERED: Morphine 10 MG/ML Syringe IVPUSH PRN (10:38)
[2019-08-14] MEDS ORDERED: Acetaminophen/HYDROcodone 325-5 MG Tab PO PRN (10:38)
[2019-08-14] MEDS ORDERED: Acetaminophen 1,000 MG in Premix Bag 1 BAG IV PRN (10:41)
--- NOTE | 2019-08-14 10:42 | PCM.OPNOTE ---
- General Post-Op/Procedure Note Date of Surgery/Procedure: 08/14/19 Operative Procedure(s): Laparoscopic chlecytectomy Pre Op Diagnosis: Symptomatic cholelithiasis Post-Op Diagnosis: Same Anesthesia Technique: General ET Tube (ASA III) Primary Surgeon: Yuriy Hankins Fluid Replacement, Intraop: 1,000 Output, Urine Amount: 230 EBL in mLs: 50 Condition: Good Free Text/Narrative:: DICTATION [id number] CPT CODE 70219
[2019-08-14] MEDS ORDERED: Lactated Ringers 1,000 ML IV SCH (10:45)
--- NOTE | 2019-08-14 11:57 | PCM.POSTAN ---
POST ANESTHESIA ASSESSMENT - MENTAL STATUS Mental Status: Alert, Oriented - VITAL SIGNS Vital Signs: Last Vital Signs Temp 36.1 C 08/14/19 10:30 Pulse 46 L 08/14/19 11:50 Resp 9 L 08/14/19 11:50 BP 96/46 L 08/14/19 11:50 Pulse Ox 96 08/14/19 11:50 - RESPIRATORY Respiratory Status: Respiratory Rate WNL, Airway Patent, O2 Saturation Stable - CARDIOVASCULAR CV Status: Blood Pressure Stable, Slow Pulse Rate - GASTROINTESTINAL GI Status: No Symptoms - PAIN Pain Score: 0 - POST OP HYDRATION Hydration Status: Adequate & Stable - OBSERVATIONS Free Text/Narrative:: Pt bradycardic possibly secondary to narcotic. BP stable. Will continue to monitor in phase 2.
--- NOTE | 2019-08-14 14:55 | OR ---
SURGEON: Yuriy Hankins M.D. DATE OF PROCEDURE: 08/14/2019 OPERATION PERFORMED: Laparoscopic cholecystectomy. PRIMARY SURGEON: Yuriy Hankins M.D. ANESTHESIA: General endotracheal ASA CLASSIFICATION: III. PREOPERATIVE DIAGNOSIS: Symptomatic cholelithiasis. POSTOPERATIVE DIAGNOSIS: Symptomatic cholelithiasis. ESTIMATED BLOOD LOSS: 50 mL. INTRAOPERATIVE FLUID REPLACEMENT: 1000 mL of crystalloid. INTRAOPERATIVE URINE OUTPUT: 230 mL. DESCRIPTION OF PROCEDURE: The patient was taken to the operating room and placed on the operating table in the supine position. Time-out was called for appropriate identification of the patient and procedure. Thigh-high TEDs and sequential compression boots were placed. Following satisfactory attainment of general endotracheal anesthesia, a Gross catheter was placed in the patient's urinary bladder. A magnet was placed over the patient's pacemaker, patient's defibrillator to prevent accidental discharge. The abdomen was then prepped with DuraPrep solution and sterile drapes were applied. The skin below the umbilicus was infiltrated with 0.5% Marcaine solution. A skin incision was made and deepened through the subcutaneous tissue, obtaining hemostasis with the use of electrocautery. The Veress needle was introduced into the peritoneal cavity. Saline drop test was positive. Carbon dioxide pneumoperitoneum was established with the release set at 13 cm of water. Once we had a satisfactory pneumoperitoneum, 5 mm camera and port were placed through the infraumbilical incision. The patient was now positioned with her feet down and rolled to the left. Under camera vision, 12 mm subxiphoid, 5 mm midclavicular, and 5 mm anterior axillary ports were placed. Each incision had preemptively been infiltrated with 0.5% Marcaine solution. The gallbladder was grasped. No significant adhesions were identified. The cholecystohepatic triangle was dissected free obtaining good critical views of both the cystic duct and cystic artery. These structures were serially hemoclipped and divided with the laparoscopic Metzenbaum scissor. Using the handheld Harmonic scalpel, the gallbladder was dissected away from its bed. No bile or stones were spilled. Bleeding sites were electrocoagulated. Once the gallbladder was amputated, this was placed in an Endo Catch and maintained in situ. The bed of the gallbladder was inspected for hemostasis and small bleeding sites were cauterized using the Harmonic scalpel. The bed of the gallbladder was then irrigated with sterile saline solution. All fluid was aspirated. Surgicel was placed into the bed of the gallbladder. The right hemidiaphragm was irrigated with 250 mL of saline containing 20 mL of 0.5% Marcaine solution. That fluid was left in place. The Endo Catch containing gallbladder and 12 mm port were removed. Again, under camera vision, 5 mm midclavicular and anterior axillary ports were removed, and finally, the infraumbilical camera and port were removed. Wounds were inspected for hemostasis and bleeding sites were electrocoagulated. The subxiphoid and infraumbilical incisions were closed in 2 layers approximating the subcutaneous tissue with 3-0 Vicryl and the skin with subcuticular 4-0 Monocryl. The anterior axillary and midclavicular incisions were closed with subcuticular 4-0 Monocryl. All incisions were Steri-Stripped and dressed with sterile Tegaderm pads. Sponge, needle, and instrument counts were all correct. Gross catheter was removed prior to emergence from anesthesia. Following emergence from anesthesia and extubation, the patient was taken to recovery room in stable condition. TOD QUEZADA /[id number]
--- NOTE | 2019-08-14 16:45 | PCM48HPAN ---
Post Anesthesia Note - EVALUATION WITHIN 48HRS OF ANESTHETIC Vital Signs in Normal Range: Yes Patient Participated in Evaluation: Yes Respiratory Function Stable: Yes (SaO2 ~95%) Airway Patent: Yes Cardiovascular Function Stable: Yes Hydration Status Stable: Yes Pain Control Satisfactory: Yes (Essentially no pain at present.) Nausea and Vomiting Control Satisfactory: Yes (1 emesis following some toast. Feels fine now.) Mental Status Recovered: Yes Vital Signs: Last Vital Signs Temp 36.1 C 08/14/19 12:00 Pulse 56 L 08/14/19 16:00 Resp 14 08/14/19 16:00 BP 120/56 L 08/14/19 16:00 Pulse Ox 98 08/14/19 16:00 - COMMENTS/OBSERVATIONS Free Text/Narrative:: Doing well. A&Ox3. No problems noted. Adequate for discharge.
[2019-08-14 17:05] VITALS: BP 107/54; PULSE 50
== END 2019-08-14 17:05 | disposition home or self-care (01) ==
LOC: MW.SDS 07:29
PROVIDERS: ATTEND Surgery
DX: K80.10 Calculus of gallbladder with chronic cholecystitis without obstruction (principal); I10 Essential (primary) hypertension; E78.00 Pure hypercholesterolemia, unspecified; E06.3 Autoimmune thyroiditis; M19.90 Unspecified osteoarthritis, unspecified site; E66.9 Obesity, unspecified; Z68.30 Body mass index [BMI] 30.0-30.9, adult; Z88.8 Allergy status to other drugs, medicaments and biological substances; Z79.82 Long term (current) use of aspirin
CPT/HCPCS: 47562; J0694; J1170; J1885; J2001; J2250; J2405; J2704; J3010; J3490; J7120; J0690

== ENCOUNTER 2021-03-28 09:05 | Emergency (ER) | payer MEDICARE, OTHER ==
[2021-03-28] MEDS ORDERED: Sodium Chloride 0.9% 10 ML Syringe FLUSH PRN (09:10)
[2021-03-28] MEDS ORDERED: Sodium Chloride 0.9% 2.5 ML Syringe FLUSH PRN (09:10)
[2021-03-28] MEDS ORDERED: Aspirin 81 MG Tab.Chew PO ONE (09:10)
--- NOTE | 2021-03-28 09:58 | CR ---
Indication: Syncope Comparison: Single view chest June 18, 2019 Technique: Single AP view chest Findings: There is hyperinflation and chronic interstitial change. There is mild hyperinflation and chronic interstitial change without dense consolidation, effusion, or pneumothorax. The cardiac silhouette is mildly prominent with a single lead pacer. The bony thorax is grossly intact. Impression: Hyperinflation and chronic interstitial change without dense consolidation. Dictated by Bart Ortega MD @ 03/28/2021 9:57:[address] Bart Ortega @ Mar 28 2021 9:57AM
[2021-03-28 10:06] LABS: BLOOD UREA NITROGEN,BUN 14 mg/dL (7.0-18.0); CARBON DIOXIDE,CO2 24.2 mmol/L (21.0-32.0); CHLORIDE,CL 105 mmol/L (98-107); GLUCOSE RANDOM 101 mg/dL (74-106); POTASSIUM,K 4.2 mmol/L (3.5-5.1); SODIUM,NA 139 mmol/L (136-145)
--- NOTE | 2021-03-28 12:01 | PCM.EKG ---
#1 Interpretation EKG Date: 03/28/21 Time: 08:56 Rhythm: NSR Rate (Beats/Min): 71 [place]: Normal P-Wave: Present QRS: Normal ST-T: Normal (TWI I aVL no change) QT: Normal Comparison: No Change (06/18/19) EKG Interpretation Comments: Sinus Rhythm
--- NOTE | 2021-03-28 12:16 | PCM.EKG ---
#2 Interpretation EKG Date: 03/28/21 Time: 11:33 Rhythm: NSR Rate (Beats/Min): 58 [place]: Normal P-Wave: Present QRS: Normal ST-T: Normal (T wave inversion I, aVL unchanged) QT: Normal Comparison: No Change (today) EKG Interpretation Comments: Sinus Rhythm
[2021-03-28] MEDS ORDERED: Acetaminophen 500 MG Tab PO ONE (14:25)
--- NOTE | 2021-03-28 14:50 | EDM.PDOC ---
ED HPI GENERAL MEDICAL PROBLEM - General Chief Complaint: Cardiovascular Problem Stated Complaint: LOST CONSCIENCE Time Seen by Provider: 03/28/21 09:10 - History of Present Illness INITIAL COMMENTS - FREE TEXT/NARRATIVE: CHIEF COMPLAINT(S): Syncope HISTORY OF PRESENT ILLNESS: This is a 65 year old woman with a PMH of hypertrophic cardiomyopathy s/p pacemaker defibrillator placement who presents to the ER with a chief complaint of syncope. 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 She states she has no current or preceding chest pain, shortness of breath, diaphoresis, nausea, or vomiting. She denies pain everywhere. She states that she had felt a little dizzy and her vision was getting a little blurry. She states she does have a mild 1/10 frontal headache not associated with any vision lsos, trouble walking, speaking, or swallowing. She denies any diplopia. She states that she only remembers waking up on the ground with some students that had helped her surrounding her. Denies other symptoms. REVIEW OF SYSTEMS: Constitutional: Denies fever, chills. Eyes: Denies eye pain Ears, Nose, Mouth, & Throat: Denies earache Cardiovascular: Positive for syncope. Denies chest pain Respiratory: Denies shortness of breath Gastrointestinal: Denies Nausea, vomiting, diarrhea, hematochezia. Genitourinary: Denies hematuria Skin:Denies a rash MSK: Denies joint pain Neurological: Positive for dizziness. Denies blurred vision, numbness, tingliong, weakness. Psychiatric: Denies depression PAST MEDICAL HISTORY: As per history of present illness and as reviewed below otherwise noncontributory. SURGICAL HISTORY: As per history of present illness and as reviewed below otherwise noncontributory. LMP: Menopausal SOCIAL HISTORY: As per history of present illness and as reviewed below otherwise noncontributory. FAMILY HISTORY: As per history of present illness and as reviewed below otherwise noncontributory. EXAMINATION OF ORGAN SYSTEMS/BODY AREAS: Constitutional: Blood pressure was 152/67, HR 74, RR 18 with oxygen at 99% RA. T: 36.6 General: Well appearing woman in NAD Psychiatric: Appropriate mood and affect. Eyes: No scleral icterus or conjunctival erythema ENMT: Moist mucous membranes. No pharyngeal erythema Cardiovascular: Regular, rate, and rhythm. No gallops, murmurs, or rubs. Bilateral upper extremity pulses symmetric and intact. No peripheral edema. No JVD. Respiratory: Lungs clear to auscultation bilaterally. No wheezes, rales, or rhonchi. Gastrointestinal: Soft, non-tender, non-distended. Normoactive bowel sounds Genitourinary: No suprapubic tenderness Musculoskeletal: Normal range of motion. Skin: No lesions or abrasions. Neurological: Alert, GCS 15 strength and sensation intact in upper and lower extremities bilaterally. MEDICAL DECISION MAKING AND COURSE IN THE ED WITH INTERPRETATION/REVIEW OF DIAGNOSTIC STUDIES: This is a 65 year old woman with a PMH of hypertrophic cardiomyopathy s/p pacemaker defibrillator placement who presents to the ER with a chief complaint of syncope who is experiencing dizziness, nausea, and mild headache. At this time given Hx of HOCM we did obtain an EKG which was unremarkable the patient will undergo a cardiac workup. Patient will be given zofran and tylenol and Aspirin. Ddx includes syncope from arrythmia given HOCM, ACS, vasavagal. PE less likely given no risk factors and low wells score. P atient palced on cardiac monitoring and pulse oximetry. Laboratory: no abnormality except for mild elevation in AST at 38. Trop is negative. The radiological images were viewed by myself along with reading the report from the radiologist. Chest x ray does not reveal any acute cardiopulmonary process. It took multiple hours to evaluate the patients pacemaker/defibrillator. [employer] equipment was difficult to use however we were able to obtain a report. Report showed a run of ventricular tachycardia for approximately 19 seconds during the same time of the syncope. There was no defibrillation or pacing. Otherwise pacemaker/defib working as programmed. Repeat trop is negative. I contacted [facility] in [place], [place] and spoke with Dr. Acosta who is the partner of Dr. Schultz. He did not recommend admission and recommended follow up with Dr. Schultz. No urgent need for any changes. Discussed with patient. Patient amenable to discharge. Patient given strict return precautions. DISPOSITION: The patient was discharged home in stable condition. The patient will follow up with Dr. schultz JAMES CONDITION: Good PROCEDURES: None FINAL IMPRESSION(S)/DIAGNOSES: 1. Acute syncopal episode Jimmy Cyr M.D. chest Pain Score (Numeric/FACES): 2 - Related Data Allergies Allergy/AdvReac Type Severity Reaction Status Date / Time Beef Containing Products Allergy Nausea and Verified 08/14/19 07:58 Vomiting dicyclomine Allergy Itching Verified 08/14/19 07:58 house dust Allergy Difficulty Verified 08/14/19 07:58 Breathing latex Allergy Rash Verified 08/14/19 07:58 milk Allergy Nausea and Verified 08/14/19 07:58 Vomiting Home Meds: Home Meds Calcium Carb, Citrate/Vit D3 [Citracal + D ER] 1 tab PO DAILY 08/21/14 [History] Cetirizine HCl [Zyrtec] 10 mg PO DAILY PRN 08/21/14 [History] Metoprolol Tartrate 100 mg PO BID 08/21/14 [History] Aspirin [Tracey Chewable] 81 mg PO DAILY 11/17/15 [History] Ezetimibe [Zetia] 10 mg PO BEDTIME 11/17/15 [History] Loratadine [Claritin] 10 mg PO DAILY PRN 08/10/19 [History] Acetaminophen/HYDROcodone [[place] 325-5 MG] 1 tab PO Q6H PRN 5 Days #15 tablet 08/14/19 [Rx] Past Medical History HEENT History: Reports: Allergic Rhinitis, Other (See Below) Other HEENT History: wears glasses Cardiovascular History: Reports: Arrhythmia, Automatic Implantable Cardioverter Defibrillators, Heart Murmur, High Cholesterol Other Cardiovascular History: hx of hypertropic cardiomyopathy, hx of mild mitral and tricuspid valve regurgitation, takes metoprolol for arrythmias Respiratory History: Reports: None Gastrointestinal History: Reports: Cholelithiasis, Colon Polyp, Diverticulosis, Fatty Liver Genitourinary History: Reports: Renal Calculus 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: Musculoskeletal History: Reports: Arthritis Neurological History: Reports: Seizure Other Neuro History: hx of seizure as a child- no cause or treatment Psychiatric History: Reports: None Endocrine/Metabolic History: Reports: Osteopenia, Other (See Below) Other Endocrine/Metabolic History: hx of Hashimotos thyroiditis (has a thyroid cyst) Hematologic History: Reports: None Immunologic History: Reports: None Oncologic (Cancer) History: Reports: None Dermatologic History: Reports: None - Infectious Disease History Infectious Disease History: Reports: Chicken Pox, Measles, Mumps - Past Surgical History Head Surgeries/Procedures: Reports: None HEENT Surgical History: Reports: Tonsillectomy Cardiovascular Surgical History: Reports: AICD Other Cardiovascular Surgeries/Procedures: cardiac defibrillator, hx angiogram Respiratory Surgical History: Reports: None GI Surgical History: Reports: Cholecystectomy, Colonoscopy, EGD Female Surgical History: Reports: Breast Biopsy, Cystectomy, Hysterectomy Other Female Surgeries/Procedures: hx laparoscopy with ovarian cystectomy Endocrine Surgical History: Reports: None Neurological Surgical History: Reports: None Musculoskeletal Surgical History: Reports: Other (See Below) Other Musculoskeletal Surgeries/Procedures:: hx of cyst removal from tendon on right wrist and finger Oncologic Surgical History: Reports: None Dermatological Surgical History: Reports: None Social & Family History - Family History Family Medical History: No Pertinent Family History - Tobacco Use Tobacco Use Status *Q: Never Tobacco User - Caffeine Use Caffeine Use: Reports: Coffee, Tea - Recreational Drug Use Recreational Drug Use: No ED ROS GENERAL - Review of Systems Review Of Systems: See Below ED EXAM, GENERAL - Physical Exam Exam: See Below Course - Vital Signs Last Recorded V/S: Last Vital Signs Temp 36.4 C 03/28/21 15:11 Pulse 61 03/28/21 15:11 Resp 18 03/28/21 15:11 BP 127/67 03/28/21 15:11 Pulse Ox 97 03/28/21 15:11 - Orders/Labs/Meds Labs: Laboratory Tests 03/28/21 03/28/21 03/28/21 Range/Units 09:22 09:22 12:29 WBC 4.28 (4.0-11.0) K/uL RBC 3.98 L (4.30-5.90) M/uL Hgb 12.4 (12.0-16.0) g/dL Hct 35.5 L (36.0-46.0) % MCV 89.2 (80.0-98.0) fL MCH 31.2 (27.0-32.0) pg MCHC 34.9 (31.0-37.0) g/dL RDW Std Deviation 44.2 (28.0-62.0) fl RDW Coeff of Mariusz 14 (11.0-15.0) % Plt Count 133 L (150-400) K/uL MPV 8.80 (7.40-12.00) fL Neut % (Auto) 57.9 (48.0-80.0) % Lymph % (Auto) 31.1 (16.0-40.0) % [place] % (Auto) 7.5 (0.0-15.0) % Eos % (Auto) 3.0 (0.0-7.0) % Baso % (Auto) 0.5 (0.0-1.5) % Neut # (Auto) 2.5 (1.4-5.7) K/uL Lymph # (Auto) 1.3 (0.6-2.4) K/uL [place] # (Auto) 0.3 (0.0-0.8) K/uL Eos # (Auto) 0.1 (0.0-0.7) K/uL Baso # (Auto) 0.0 (0.0-0.1) K/uL Nucleated RBC % 0.0 /100WBC Nucleated RBCs # 0 K/uL Sodium 139 (136-145) mmol/L Potassium 4.2 (3.5-5.1) mmol/L Chloride 105 (98-107) mmol/L Carbon Dioxide 24.2 (21.0-32.0) mmol/L BUN 14 (7.0-18.0) mg/dL Creatinine 0.8 (0.6-1.0) mg/dL Est Cr Clr Drug Dosing 54.71 mL/min Estimated GFR (MDRD) > 60.0 ml/min Glucose 101 (74-106) mg/dL Calcium 8.8 (8.5-10.1) mg/dL Magnesium 2.3 (1.8-2.4) mg/dL Total Bilirubin 0.3 (0.2-1.0) mg/dL AST 38 H (15-37) IU/L ALT 48 (14-63) IU/L Alkaline Phosphatase 87 (46-116) U/L Troponin I < 0.050 < 0.050 (0.000-0.056) ng/mL Total Protein 6.8 (6.4-8.2) g/dL Albumin 3.7 (3.4-5.0) g/dL Globulin 3.1 (2.6-4.0) g/dL Albumin/Globulin Ratio 1.2 (0.9-1.6) Meds: Medications Discontinued Medications Generic Name Dose Route Start Last Admin Trade Name Freq PRN Reason Stop Dose Admin Acetaminophen 1,000 mg 03/28/21 14:25 03/28/21 19:11 Acetaminophen 500 Mg Tab PO 03/28/21 14:26 Not Given ONETIME ONE Aspirin 324 mg 03/28/21 09:10 03/28/21 09:52 Aspirin 81 Mg Tab.Chew PO 03/28/21 09:11 324 mg ONETIME ONE Administration Sodium Chloride 10 ml 03/28/21 09:10 03/28/21 09:53 Sodium Chloride 0.9% 10 Ml Syringe FLUSH 10 ml ASDIRECTED PRN Administration Keep Vein Open Sodium Chloride 2.5 ml 03/28/21 09:10 03/28/21 09:52 Sodium Chloride 0.9% 2.5 Ml Syringe FLUSH 2.5 ml ASDIRECTED PRN Administration Keep Vein Open Departure - Departure Time of Disposition: 14:50 Disposition: Home, Self-Care 01 Condition: Fair Clinical Impression: Syncope - Discharge Information *PRESCRIPTION DRUG MONITORING PROGRAM REVIEWED*: No *COPY OF PRESCRIPTION DRUG MONITORING REPORT IN PATIENT ANGELA: No Instructions: Syncope, [id number] Referrals: PCP,None [Primary Care Provider] - Jose Schultz MD [Ordering Only Provider] - Forms: ED Department Discharge Additional Instructions: You were evaluated today on an emergent basis. At this time your work-up was negative. As discussed you did have an episode of ventricular tachycardia this morning for which your defibrillator and pacemaker responded appropriately. I did review this with your cardiology team and they recommended follow-up as soon as possible in their clinic. It is important that she continue with hydration at home and you are to return to the emergency department if you have any further episodes of passing out, chest pain, shortness of breath. [facility] [address] [place] [address] [id number] [address] [address] The patient is informed of any results of their evaluation and diagnostic workup and all questions are answered. They are given discharge instructions and return precautions. The patient is stable for discharge. The patient states they understand and agree with the plan and that they will return if their symptoms get worse or if they have any new concerns. The following information is given to patients seen in the emergency department who are being discharged to home. This information is to outline your options for follow-up care. We provide all patients seen in our emergency department with a follow-up referral. The need for follow-up, as well as the timing and circumstances, are variable depending upon the specifics of your emergency department visit. If you don't have a primary care physician on staff, we will provide you with a referral. We always advise you to contact your personal physician following an emergency department visit to inform them of the circumstance of the visit and for follow-up with them and/or the need for any referrals to a consulting specialist. The emergency department will also refer you to a specialist when appropriate. This referral assures that you have the opportunity for follow-up care with a specialist. All of these measure are taken in an effort to provide you with optimal care, which includes your follow-up. Under all circumstances we always encourage you to contact your private physician who remains a resource for coordinating your care. When calling for follow-up care, please make the office aware that this follow-up is from your recent emergency room visit. If for any reason you are refused follow-up, please contact the [facility] Emergency Department at and asked to speak to the emergency department charge nurse. Sepsis Event Note (ED) - Evaluation Sepsis Screening Result: No Definite Risk
[2021-03-28 19:19] VITALS: BP 127/67; PULSE 61
== END 2021-03-28 15:12 | disposition home or self-care (01) ==
LOC: MW.ED 09:05
DX: R55 Syncope and collapse (principal); E78.00 Pure hypercholesterolemia, unspecified; Z91.018 Allergy to other foods; Z88.3 Allergy status to other anti-infective agents; Z91.040 Latex allergy status; Z91.011 Allergy to milk products; Z79.82 Long term (current) use of aspirin; Z79.899 Other long term (current) drug therapy
CPT/HCPCS: 36415; 71045; 80053; 83735; 84484; 85025; 93005; 99284; A9270; 99283

== ENCOUNTER 2021-07-23 09:34 | Emergency (ER) | payer MEDICARE, OTHER ==
[2021-07-23] MEDS ORDERED: Amoxicillin/Clavulanate K 875-125 MG Tab PO ONE (10:06)
--- NOTE | 2021-07-23 10:11 | EDM.PDOC ---
ED HPI GENERAL MEDICAL PROBLEM - General Chief Complaint: Allergic Reaction Stated Complaint: ALLERGIC REACTION Time Seen by Provider: 07/23/21 09:41 Source of Information: Reports: Patient History Limitations: Reports: No Limitations - History of Present Illness INITIAL COMMENTS - FREE TEXT/NARRATIVE: HISTORY AND PHYSICAL: History of present illness: Patient is a 66-year-old female who presents to the emergency room with concern she is having an allergic reaction to new prescribed medication. Saturday she went to her primary care provider as she was having some left low abdominal pain with diarrhea. She was diagnosed with diverticulitis and placed on Cipro and Flagyl. She has taken 3 doses of this medication and since has noticed a metallic taste in her mouth with "strange sensation". She states there is some dry sensation in throat when she is swallowing. She denies any difficulty with speech, drooling, nor difficulty with eating/drinking. She denies any skin changes, dyspnea or soft tissue swelling of the lips or mouth/tongue. Patient denies any fever, chills, headache, change in vision, syncope or near syncope. Denies any chest pain, back pain, shortness of breath or cough. Denies any GI or symptoms. Patient has been eating and drinking appropriately. No recent travel or sick contacts. Review of systems: As per history of present illness and below otherwise all systems reviewed and negative. Past medical history: As per history of present illness and as reviewed below otherwise noncontributory. Surgical history: As per history of present illness and as reviewed below otherwise noncontributory. Social history: See social history for further information Family history: As per history of present illness and as reviewed below otherwise noncontributory. Physical exam: General: Well developed and well nourished 66-year-old female. Alert and orientated x 3. Nontoxic in appearance and in no acute distress. Vital signs are stable and have been reviewed by me. Nursing notes were reviewed. HEENT: Atraumatic, normocephalic, pupils equal and reactive bilaterally, negative for conjunctival pallor or scleral icterus, mucous membranes moist, TMs normal bilaterally, throat clear without pillar shifting or soft tissue swelling, neck supple, nontender, trachea midline. No drooling or trismus noted. No meningeal signs. No hot potato voice noted. Lungs: Clear to auscultation bilaterally. No wheezes, rales, or rhonchi. Chest nontender. Normal work of breathing, no accessory muscles used. Heart: S1S2, regular rate and rhythm without overt murmur, gallops, or rubs. No JVD. No peripheral edema Abdomen: Soft, nondistended, nontender. Normoactive bowel sounds. Negative for masses or costovertebral tenderness. Skin: Intact, warm, dry. No lesions or rashes noted. Hematologic: No petechiae or purpra. Mucosa appropriate color and normal nail bed color and refill. Extremities: Atraumatic, moves all extremities per self without difficulty or deficits, negative for cords or calf pain. Neurovascular unremarkable. Neuro: Awake, alert, oriented. Cranial nerves II through XII unremarkable. Cerebellum unremarkable. Motor and sensory unremarkable throughout. Exam nonfocal. Psychiatric: Mood and affect are appropriate. Normal thought process. Answering questions appropriately. Please note that the patient was seen and evaluated during the 2019 SARS-CoV-2 novel coronavirus pandemic period. Community viral transmission is ongoing at time of this encounter and the emergency department is operating under pandemic response procedures. Medical Decision Making: Patient is a 66-year-old female who presents to the emergency room with complaints of metallic taste in mouth and "strange sensation" in her mouth since starting Cipro and Flagyl for diverticulitis. Patient is concerned she is having an allergic reaction. Physical exam is unremarkable. We did discuss doing diagnostics and giving her some IV fluids as she may be dehydrated due to the previous diarrhea she had. She declines. She would like to discuss other treatment options for that diverticulitis. We did discuss Augmentin, would like to switch to this medication with the intention to follow-up with her primary care provider. I have talked with the patient about today's findings, in addition to providing specific details for plan of care. Reassessment at the time of disposition demonstrates that the patient is in no acute distress. The patient is stable for discharge, counseling was provided and we discussed in great detail signs and symptoms that would prompt them to return to the Emergency Department. Medication, follow up and supportive care measures were reviewed and discussed. Voices understanding and is agreeable to plan of care. Denies any further questions or concerns at this time. Diagnostics: None Therapeutics: Augmentin Prescription: Augmentin Impression: Medication side effect Plan: 1. You were evaluated today on an emergent basis. Please stop taking the Cipro and Flagyl. I have switched you to Augmentin, 1 tab twice daily over the next 7 days. 2. You can alternate Tylenol and ibuprofen as needed for pain and fever man agement. You can use Benadryl as needed for symptomatic relief. Make sure you're drinking plenty of fluids. 3. We encourage you to follow up with your primary care provider in the next few days for re-evaluation and further care/management. 4. If your symptoms should worsen, new symptoms develop or any of the signs and symptoms we discussed should arise please return to the emergency room or call 911 (if needed). Definitive disposition and diagnosis as appropriate pending reevaluation and review of above. abdomen Pain Score (Numeric/FACES): 5 - Related Data Allergies Allergy/AdvReac Type Severity Reaction Status Date / Time Beef Containing Products Allergy Nausea and Verified 07/23/21 09:48 Vomiting dicyclomine Allergy Itching Verified 07/23/21 09:48 house dust Allergy Difficulty Verified 07/23/21 09:48 Breathing latex Allergy Rash Verified 07/23/21 09:48 milk Allergy Nausea and Verified 07/23/21 09:48 Vomiting Home Meds: Home Meds Calcium Carb, Citrate/Vit D3 [Citracal + D ER] 1 tab PO DAILY 08/21/14 [History] Cetirizine HCl [Zyrtec] 10 mg PO DAILY PRN 08/21/14 [History] Metoprolol Tartrate 100 mg PO BID 08/21/14 [History] Aspirin [Tracey Chewable] 81 mg PO DAILY 11/17/15 [History] Ezetimibe [Zetia] 10 mg PO BEDTIME 11/17/15 [History] Loratadine [Claritin] 10 mg PO DAILY PRN 08/10/19 [History] Amoxicillin/Clavulanate K [Augmentin 875-125 MG] 1 tab PO BID 7 Days #14 tablet 07/23/21 [Rx] Ciprofloxacin HCl [Cipro] 500 mg PO BID 07/23/21 [History] metroNIDAZOLE [Metronidazole] 500 mg PO TID 07/23/21 [History] Past Medical History HEENT History: Reports: Allergic Rhinitis, Other (See Below) Other HEENT History: wears glasses Cardiovascular History: Reports: Arrhythmia, Automatic Implantable Cardioverter Defibrillators, Heart Murmur, High Cholesterol Other Cardiovascular History: hx of hypertropic cardiomyopathy, hx of mild mitral and tricuspid valve regurgitation, takes metoprolol for arrythmias Respiratory History: Reports: None Gastrointestinal History: Reports: Cholelithiasis, Colon Polyp, Diverticulosis, Fatty Liver Genitourinary History: Reports: Renal Calculus [employer] History: Reports: Musculoskeletal History: Reports: Arthritis Neurological History: Reports: Seizure Other Neuro History: hx of seizure as a child- no cause or treatment Psychiatric History: Reports: None Endocrine/Metabolic History: Reports: Osteopenia, Other (See Below) Other Endocrine/Metabolic History: hx of Hashimotos thyroiditis (has a thyroid cyst) Hematologic History: Reports: None Immunologic History: Reports: None Oncologic (Cancer) History: Reports: None Dermatologic History: Reports: None - Infectious Disease History Infectious Disease History: Reports: Chicken Pox, Measles, Mumps - Past Surgical History Head Surgeries/Procedures: Reports: None HEENT Surgical History: Reports: Tonsillectomy Cardiovascular Surgical History: Reports: AICD Other Cardiovascular Surgeries/Procedures: cardiac defibrillator, hx angiogram Respiratory Surgical History: Reports: None GI Surgical History: Reports: Cholecystectomy, Colonoscopy, EGD Female Surgical History: Reports: Breast Biopsy, Cystectomy, Hysterectomy Other Female Surgeries/Procedures: hx laparoscopy with ovarian cystectomy Endocrine Surgical History: Reports: None Neurological Surgical History: Reports: None Musculoskeletal Surgical History: Reports: Other (See Below) Other Musculoskeletal Surgeries/Procedures:: hx of cyst removal from tendon on right wrist and finger Oncologic Surgical History: Reports: None Dermatological Surgical History: Reports: None Social & Family History - Family History Family Medical History: No Pertinent Family History - Tobacco Use Tobacco Use Status *Q: Never Tobacco User - Caffeine Use Caffeine Use: Reports: Coffee, Tea - Recreational Drug Use Recreational Drug Use: No ED ROS ALLERGIC REACTION - Review of Systems Review Of Systems: Comprehensive ROS is negative, except as noted in HPI. ED EXAM GENERAL NO PERIP PULSE - Physical Exam Exam: See Below (See dictation) Course - Vital Signs Last Recorded V/S: Last Vital Signs Temp 98.4 F 07/23/21 10:27 Pulse 73 07/23/21 10:27 Resp 18 07/23/21 10:27 BP 122/49 L 07/23/21 10:27 Pulse Ox 95 07/23/21 10:27 - Orders/Labs/Meds Meds: Medications Discontinued Medications Generic Name Dose Route Start Last Admin Trade Name Ramón PRN Reason Stop Dose Admin Amoxicillin/Clavulanate Potassium 1 tab 07/23/21 10:06 07/23/21 10:23 Amoxicillin/Clavulanate K 875-125 Mg Tab PO 07/23/21 10:07 1 tab ONETIME ONE Administration Departure - Departure Time of Disposition: 10:09 Disposition: Home, Self-Care 01 Clinical Impression: Medication adverse effect - Discharge Information Prescriptions: Amoxicillin/Clavulanate K [Augmentin 875-125 MG] 1 tab PO BID 7 Days #14 tablet Instructions: Allergies, Adult Referrals: PCP,None [Primary Care Provider] - Forms: ED Department Discharge Additional Instructions: The following information is given to patients seen in the emergency department who are being discharged to home. This information is to outline your options for follow-up care. We provide all patients seen in our emergency department with a follow-up referral. The need for follow-up, as well as the timing and circumstances, are variable depending upon the specifics of your emergency department visit. If you don't have a primary care physician on staff, we will provide you with a referral. We always advise you to contact your personal physician following an e mergency department visit to inform them of the circumstance of the visit and for follow-up with them and/or the need for any referrals to a consulting specialist. The emergency department will also refer you to a specialist when appropriate. This referral assures that you have the opportunity for follow-up care with a specialist. All of these measure are taken in an effort to provide you with op timal care, which includes your follow-up. Under all circumstances we always encourage you to contact your private physician who remains a resource for coordinating your care. When calling for follow-up care, please make the office aware that this follow-up is from your recent emergency room visit. If for any reason you are refused follow-up, please contact the [facility] Emergency Department at and asked to speak to the emergency department charge nurse. [facility] [address] [place] [id number] [address] [place] [address] Thank you for choosing the [facility] emergency department in [place] for your medical needs today. It was a pleasure caring for you. Today you were seen in the emergency department for possible allergic reaction Your prescription was electronically sent to: [facility] 1. You were evaluated today on an emergent basis. Please stop taking the Cipro and Flagyl. I have switched you to Augmentin, 1 tab twice daily over the next 7 days. 2. You can alternate Tylenol and ibuprofen as needed for pain and fever management. You can use Benadryl as needed for symptomatic relief. Make sure you're drinking plenty of fluids. 3. We encourage you to follow up with your primary care provider in the next few days for re-evaluation and further care/management. 4. If your symptoms should worsen, new symptoms develop or any of the signs and symptoms we discussed should arise please return to the emergency room or call 911 (if needed). Sepsis Event Note (ED) - Evaluation Sepsis Screening Result: No Definite Risk - Focused Exam Vital Signs: Vital Signs Temp Pulse Resp BP Pulse Ox 07/23/21 10:27 98.4 F 73 18 122/49 L 95 07/23/21 09:44 97.8 F 79 16 137/53 L 98
[2021-07-23 10:32] VITALS: BP 122/49; PULSE 73
== END 2021-07-23 10:31 | disposition home or self-care (01) ==
LOC: MW.ED 09:34
DX: R10.9 Unspecified abdominal pain (principal); T36.8X5A Adverse effect of other systemic antibiotics, initial encounter; T37.3X5A Adverse effect of other antiprotozoal drugs, initial encounter; Z91.011 Allergy to milk products; Z91.040 Latex allergy status; Z91.018 Allergy to other foods; Z91.048 Other nonmedicinal substance allergy status
CPT/HCPCS: 99283; A9270

== ENCOUNTER 2023-04-14 21:31 | Emergency (ER) | payer MEDICARE, OTHER ==
[2023-04-14 22:31] LABS: BASOPHILS PERCENT AUTO 0.4 % (0.0-1.5); EOSINOPHILS ABSOLUTE AUTO 0.1 K/uL (0.0-0.7); EOSINOPHILS PERCENT AUTO 2.2 % (0.0-7.0); HEMATOCRIT 37.3 % (36.0-46.0); HEMOGLOBIN 12.2 g/dL (12.0-16.0); LYMPHOCYTES ABSOLUTE AUTO 1.4 K/uL (0.6-2.4); LYMPHOCYTES PERCENT AUTO 30.7 % (16.0-40.0); MEAN CORPUSCULAR HEMOGLOBIN 29.7 pg (27.0-32.0); MEAN CORPUSCULAR HGB CONC 32.7 g/dL (31.0-37.0); MEAN CORPUSCULAR VOLUME 90.8 fL (80.0-98.0); MONOCYTES ABSOLUTE AUTO 0.4 K/uL (0.0-0.8); MONOCYTES PERCENT AUTO 7.8 % (0.0-15.0); NEUTROPHILS ABSOLUTE AUTO 2.7 K/uL (1.4-5.7); NEUTROPHILS PERCENT AUTO 58.9 % (48.0-80.0); NRBC ABSOLUTE 0 K/uL; PLATELET COUNT,PLT 200 K/uL (150-400); RED BLOOD CELL COUNT 4.11 M/uL (4.30-5.90); WHITE BLOOD CELL COUNT,WBC 4.63 K/uL (4.0-11.0)
[2023-04-14 22:56] LABS: ALBUMIN 3.7 g/dL (3.4-5.0); BILIRUBIN TOTAL 0.2 mg/dL (0.2-1.0); CALCIUM 9.5 mg/dL (8.5-10.1); CARBON DIOXIDE,CO2 27.7 mmol/L (21.0-32.0); CREATININE 0.9 mg/dL (0.6-1.0); EST CRCL DRUG DOSING (CG) 46.66 mL/min; MAGNESIUM 2.2 mg/dL (1.8-2.4); POTASSIUM,K 4.5 mmol/L (3.5-5.1); PROTEIN TOTAL,TP 7.4 g/dL (6.4-8.2)
[2023-04-15 00:34] VITALS: BP 119/99; PULSE 74
== END 2023-04-15 00:34 | disposition home or self-care (01) ==
LOC: MW.ED 21:31
DX: R07.89 Other chest pain (principal); Z91.018 Allergy to other foods; Z91.048 Other nonmedicinal substance allergy status; Z91.011 Allergy to milk products; Z91.040 Latex allergy status; Z88.8 Allergy status to other drugs, medicaments and biological substances; Z79.82 Long term (current) use of aspirin; Z79.899 Other long term (current) drug therapy
CPT/HCPCS: 36415; 71045; 71045-26; 80053; 83735; 84484; 85025; 93005; 93010; 99283; 99285

== ENCOUNTER 2023-09-17 17:44 | Inpatient (IN) | payer MEDICARE, OTHER ==
[2023-09-17 19:24] LABS: APPEARANCE,URINE CLEAR; BILIRUBIN,URINE NEGATIVE (NEGATIVE); COLOR,URINE YELLOW; GLUCOSE,URINE NEGATIVE (NEGATIVE); KETONES,URINE NEGATIVE (NEGATIVE); LEUKOCYTE ESTERASE,URINE NEGATIVE (NEGATIVE); NITRITE,URINE NEGATIVE (NEGATIVE); OCCULT BLOOD,URINE NEGATIVE (NEGATIVE); PH,URINE 5.5 (5.0-8.0); PROTEIN,URINE NEGATIVE (NEGATIVE); UROBILINOGEN,URINE 0.2 EU/dL (<2.0)
[2023-09-17 21:08] LABS: BASOPHILS ABSOLUTE AUTO 0.01 K/uL (0.00-0.20); BASOPHILS PERCENT AUTO 0.1 % (0.0-1.0); EOSINOPHILS ABSOLUTE AUTO 0.02 K/uL (0.00-0.45); EOSINOPHILS PERCENT AUTO 0.2 % (0.0-6.0); HEMATOCRIT 37.6 % (37.0-47.0); IMMATURE GRAN ABSOLUTE AUTO 0.03 K/uL (0.00-0.05); IMMATURE GRAN PERCENT AUTO 0.3 % (0.0-0.4); LYMPHOCYTES ABSOLUTE AUTO 1.05 K/uL (1.00-4.80); LYMPHOCYTES PERCENT AUTO 9.3 % (24.0-44.0); MEAN CORPUSCULAR HEMOGLOBIN 30.9 pg (28.0-32.0); MEAN CORPUSCULAR HGB CONC 34.6 g/dL (32.0-36.0); MEAN CORPUSCULAR VOLUME 89.3 fL (83.0-99.0); MEAN PLATELET VOLUME 8.8 fL (9.4-12.3); MONOCYTES ABSOLUTE AUTO 0.63 K/uL (0.00-0.80); MONOCYTES PERCENT AUTO 5.6 % (0.0-8.0); NEUTROPHILS ABSOLUTE AUTO 9.58 K/uL (1.80-7.70); NEUTROPHILS PERCENT AUTO 84.5 % (41.0-71.0); PLATELET COUNT,PLT 141 K/uL (150-400); RED BLOOD CELL COUNT 4.21 M/uL (4.10-5.30); WHITE BLOOD CELL COUNT,WBC 11.32 K/uL (3.9-11.3)
[2023-09-17] MEDS ORDERED: Naloxone 0.4 MG/ML SDV IVPUSH PRN (21:15)
[2023-09-17 21:34] LABS: A/G RATIO 1.1 (0.9-1.6); ALBUMIN 3.9 g/dL (3.4-5.0); BILIRUBIN TOTAL 0.4 mg/dL (0.2-1.0); CALCIUM 9.5 mg/dL (8.5-10.1); CARBON DIOXIDE,CO2 25.7 mmol/L (21.0-32.0); CREATININE 0.9 mg/dL (0.6-1.0); EST CRCL DRUG DOSING (CG) 46.66 mL/min; POTASSIUM,K 4.1 mmol/L (3.5-5.1); PROTEIN TOTAL,TP 7.3 g/dL (6.4-8.2)
[2023-09-17] MEDS: Iopamidol 755 MG/ML 500 ML Multipack Bottle IVPUSH STA (22:21)
[2023-09-17] MEDS: Sodium Chloride 0.9% 1,000 ML IV ONE (23:41)
[2023-09-17] MEDS: Morphine 2 MG/ML SYRINGE IVPUSH ONE (23:42)
[2023-09-17] MEDS: Sodium Chloride 0.9% 10 ML Syringe FLUSH PRN (23:44)
[2023-09-17] MEDS: Sodium Chloride 0.9% 2.5 ML Syringe FLUSH PRN (23:44)
[2023-09-18] MEDS: Morphine 2 MG/ML SYRINGE ONE (00:08)
[2023-09-18] MEDS: Piperacillin/Tazobactam 4.5 GM in Sodium Chloride 0.9% 100 ML IV ONE (00:09)
[2023-09-18] MEDS: Ondansetron 4 MG/2 ML SDV IVPUSH PRN (04:11)
[2023-09-18] MEDS: Sodium Chloride 0.9% 1,000 ML IV SCH (04:11)
[2023-09-18] MEDS: Ciprofloxacin in D5W 400 MG in Premix Bag 1 BAG IV SCH (04:11)
[2023-09-18] MEDS: Metoprolol Succinate 50 MG Tab.ER PO SCH (04:12)
[2023-09-18] MEDS: Morphine 2 MG/ML SYRINGE IVPUSH PRN (04:12)
[2023-09-18] MEDS: metroNIDAZOLE/Normal Saline 500 MG in Premix Bag 1 BAG IV SCH (06:11)
[2023-09-18] MEDS: Sodium Chloride 0.9% 500 ML IV SCH (08:21)
[2023-09-18] MEDS: Enoxaparin 40 MG/0.4 ML Syringe SUBCUT SCH (08:21)
[2023-09-18] MEDS: Pantoprazole 40 MG in Sodium Chloride 0.9% 10 ML IVPUSH SCH (08:21)
[2023-09-18] MEDS: Sodium Chloride 0.9% 500 ML IV ONE (08:23)
[2023-09-18] MEDS: metroNIDAZOLE/Normal Saline 100 ML IV SCH (13:44)
[2023-09-18] MEDS: traMADol 50 MG Tab PO PRN (15:33)
[2023-09-19 07:40] LABS: BASOPHILS ABSOLUTE AUTO 0.02 K/uL (0.00-0.20); BASOPHILS PERCENT AUTO 0.3 % (0.0-1.0); EOSINOPHILS ABSOLUTE AUTO 0.01 K/uL (0.00-0.45); EOSINOPHILS PERCENT AUTO 0.1 % (0.0-6.0); HEMATOCRIT 30.8 % (37.0-47.0); HEMOGLOBIN 10.4 g/dL (12.0-16.0); IMMATURE GRAN ABSOLUTE AUTO 0.03 K/uL (0.00-0.05); IMMATURE GRAN PERCENT AUTO 0.4 % (0.0-0.4); LYMPHOCYTES PERCENT AUTO 15.8 % (24.0-44.0); MEAN CORPUSCULAR HEMOGLOBIN 30.3 pg (28.0-32.0); MEAN CORPUSCULAR HGB CONC 33.8 g/dL (32.0-36.0); MEAN CORPUSCULAR VOLUME 89.8 fL (83.0-99.0); MEAN PLATELET VOLUME 9.2 fL (9.4-12.3); MONOCYTES ABSOLUTE AUTO 0.32 K/uL (0.00-0.80); MONOCYTES PERCENT AUTO 4.2 % (0.0-8.0); NEUTROPHILS ABSOLUTE AUTO 6.01 K/uL (1.80-7.70); NEUTROPHILS PERCENT AUTO 79.2 % (41.0-71.0); PLATELET COUNT,PLT 108 K/uL (150-400); RED BLOOD CELL COUNT 3.43 M/uL (4.10-5.30); WHITE BLOOD CELL COUNT,WBC 7.59 K/uL (3.9-11.3)
[2023-09-19 07:55] LABS: CALCIUM 7.9 mg/dL (8.5-10.1); CARBON DIOXIDE,CO2 22.9 mmol/L (21.0-32.0); CREATININE 0.7 mg/dL (0.6-1.0); EST CRCL DRUG DOSING (CG) 59.99 mL/min; POTASSIUM,K 3.6 mmol/L (3.5-5.1)
[2023-09-19] MEDS: Acetaminophen 325 MG Tab PO PRN (09:21)
[2023-09-19] MEDS: Loratadine 10 MG Tab PO PRN (23:51)
[2023-09-20 05:42] LABS: BASOPHILS ABSOLUTE AUTO 0.01 K/uL (0.00-0.20); BASOPHILS PERCENT AUTO 0.2 % (0.0-1.0); EOSINOPHILS ABSOLUTE AUTO 0.03 K/uL (0.00-0.45); EOSINOPHILS PERCENT AUTO 0.5 % (0.0-6.0); HEMATOCRIT 29.5 % (37.0-47.0); HEMOGLOBIN 10.2 g/dL (12.0-16.0); IMMATURE GRAN ABSOLUTE AUTO 0.02 K/uL (0.00-0.05); IMMATURE GRAN PERCENT AUTO 0.3 % (0.0-0.4); LYMPHOCYTES PERCENT AUTO 16.6 % (24.0-44.0); MEAN CORPUSCULAR HEMOGLOBIN 31.1 pg (28.0-32.0); MEAN CORPUSCULAR HGB CONC 34.6 g/dL (32.0-36.0); MEAN CORPUSCULAR VOLUME 89.9 fL (83.0-99.0); MEAN PLATELET VOLUME 9.8 fL (9.4-12.3); MONOCYTES ABSOLUTE AUTO 0.28 K/uL (0.00-0.80); MONOCYTES PERCENT AUTO 4.6 % (0.0-8.0); NEUTROPHILS PERCENT AUTO 77.8 % (41.0-71.0); PLATELET COUNT,PLT 120 K/uL (150-400); RED BLOOD CELL COUNT 3.28 M/uL (4.10-5.30); WHITE BLOOD CELL COUNT,WBC 6.04 K/uL (3.9-11.3)
[2023-09-20 06:02] LABS: CARBON DIOXIDE,CO2 21.4 mmol/L (21.0-32.0); CREATININE 0.7 mg/dL (0.6-1.0); EST CRCL DRUG DOSING (CG) 59.99 mL/min; POTASSIUM,K 3.3 mmol/L (3.5-5.1)
[2023-09-20] MEDS: Potassium Chloride 100 ML IV SCH (07:56)
[2023-09-20 12:00] LABS: CORONAVIRUS COVID-19 NAA NEGATIVE (NEGATIVE); INFLUENZA A NAA NEGATIVE (NEGATIVE); INFLUENZA B NAA NEGATIVE (NEGATIVE)
[2023-09-21 05:56] LABS: BASOPHILS ABSOLUTE AUTO 0.01 K/uL (0.00-0.20); BASOPHILS PERCENT AUTO 0.2 % (0.0-1.0); EOSINOPHILS ABSOLUTE AUTO 0.07 K/uL (0.00-0.45); EOSINOPHILS PERCENT AUTO 1.2 % (0.0-6.0); HEMATOCRIT 31.3 % (37.0-47.0); HEMOGLOBIN 10.7 g/dL (12.0-16.0); IMMATURE GRAN ABSOLUTE AUTO 0.02 K/uL (0.00-0.05); IMMATURE GRAN PERCENT AUTO 0.4 % (0.0-0.4); LYMPHOCYTES ABSOLUTE AUTO 1.09 K/uL (1.00-4.80); LYMPHOCYTES PERCENT AUTO 19.4 % (24.0-44.0); MEAN CORPUSCULAR HEMOGLOBIN 30.4 pg (28.0-32.0); MEAN CORPUSCULAR HGB CONC 34.2 g/dL (32.0-36.0); MEAN CORPUSCULAR VOLUME 88.9 fL (83.0-99.0); MONOCYTES ABSOLUTE AUTO 0.35 K/uL (0.00-0.80); MONOCYTES PERCENT AUTO 6.2 % (0.0-8.0); NEUTROPHILS ABSOLUTE AUTO 4.07 K/uL (1.80-7.70); NEUTROPHILS PERCENT AUTO 72.6 % (41.0-71.0); PLATELET COUNT,PLT 149 K/uL (150-400); RED BLOOD CELL COUNT 3.52 M/uL (4.10-5.30); WHITE BLOOD CELL COUNT,WBC 5.61 K/uL (3.9-11.3)
[2023-09-21 06:21] LABS: CALCIUM 8.4 mg/dL (8.5-10.1); CARBON DIOXIDE,CO2 23.5 mmol/L (21.0-32.0); CREATININE 0.8 mg/dL (0.6-1.0); EST CRCL DRUG DOSING (CG) 52.49 mL/min; POTASSIUM,K 3.3 mmol/L (3.5-5.1)
[2023-09-21] MEDS: Potassium Chloride 20 MEQ Tab.ER PO ONE (08:22)
[2023-09-21 13:52] VITALS: BP 146/67; PULSE 79
== END 2023-09-21 14:10 | disposition home or self-care (01) | DRG 392 ==
LOC: MW.ED 17:44 → MW.MS 23:50
PROVIDERS: ADMIT Internal Medicine; ATTEND Internal Medicine
DX: K57.32 Diverticulitis of large intestine without perforation or abscess without bleeding (principal); K57.20 Diverticulitis of large intestine with perforation and abscess without bleeding; I42.2 Other hypertrophic cardiomyopathy; E78.00 Pure hypercholesterolemia, unspecified; M19.90 Unspecified osteoarthritis, unspecified site; K76.0 Fatty (change of) liver, not elsewhere classified; E66.9 Obesity, unspecified; R09.89 Other specified symptoms and signs involving the circulatory and respiratory systems; Z91.018 Allergy to other foods; Z90.710 Acquired absence of both cervix and uterus; Z90.49 Acquired absence of other specified parts of digestive tract; Z91.040 Latex allergy status; Z91.011 Allergy to milk products; Z88.8 Allergy status to other drugs, medicaments and biological substances; Z91.014 Allergy to mammalian meats; Z79.82 Long term (current) use of aspirin; Z79.899 Other long term (current) drug therapy; Z90.89 Acquired absence of other organs; Z68.33 Body mass index [BMI] 33.0-33.9, adult; Z11.52 Encounter for screening for COVID-19
CPT/HCPCS: 0240U; 36415; 74177; 80048; 80053; 81003; 83605; 83690; 83735; 85025; 96374; 99285; A9270-GY; C9113; J0744; J1650; J1836; J2270; J2405; J2543; J3480; J3490; J7030; J7040; Q9967

== ENCOUNTER 2024-02-10 14:32 | Emergency (ER) | payer MEDICARE, OTHER ==
[2024-02-10 15:06] LABS: BASOPHILS ABSOLUTE AUTO 0.03 K/uL (0.00-0.20); BASOPHILS PERCENT AUTO 0.6 % (0.0-1.0); EOSINOPHILS ABSOLUTE AUTO 0.07 K/uL (0.00-0.45); EOSINOPHILS PERCENT AUTO 1.5 % (0.0-6.0); HEMATOCRIT 36.3 % (37.0-47.0); HEMOGLOBIN 12.7 g/dL (12.0-16.0); IMMATURE GRAN ABSOLUTE AUTO 0.01 K/uL (0.00-0.05); IMMATURE GRAN PERCENT AUTO 0.2 % (0.0-0.4); LYMPHOCYTES ABSOLUTE AUTO 2.17 K/uL (1.00-4.80); MEAN CORPUSCULAR HEMOGLOBIN 31.5 pg (28.0-32.0); MEAN CORPUSCULAR VOLUME 90.1 fL (83.0-99.0); MEAN PLATELET VOLUME 8.9 fL (9.4-12.3); MONOCYTES ABSOLUTE AUTO 0.46 K/uL (0.00-0.80); MONOCYTES PERCENT AUTO 9.7 % (0.0-8.0); NEUTROPHILS ABSOLUTE AUTO 1.98 K/uL (1.80-7.70); PLATELET COUNT,PLT 167 K/uL (150-400); RED BLOOD CELL COUNT 4.03 M/uL (4.10-5.30); WHITE BLOOD CELL COUNT,WBC 4.72 K/uL (3.9-11.3)
[2024-02-10] MEDS: Ketorolac 30 MG/ML SDV IVPUSH ONE (15:09)
[2024-02-10] MEDS: Sodium Chloride 0.9% 1,000 ML IV ONE (15:09)
[2024-02-10] MEDS: Ondansetron 4 MG/2 ML SDV IVPUSH ONE (15:09)
[2024-02-10 15:15] LABS: A/G RATIO 1.2 (0.9-1.6); ALBUMIN 3.9 g/dL (3.4-5.0); BILIRUBIN TOTAL 0.3 mg/dL (0.2-1.0); CARBON DIOXIDE,CO2 26.6 mmol/L (21.0-32.0); CREATININE 0.9 mg/dL (0.6-1.0); EST CRCL DRUG DOSING (CG) 46.66 mL/min; MAGNESIUM 2.2 mg/dL (1.8-2.4); PROTEIN TOTAL,TP 7.2 g/dL (6.4-8.2)
[2024-02-10 15:26] LABS: APPEARANCE,URINE CLEAR; BILIRUBIN,URINE NEGATIVE (NEGATIVE); COLOR,URINE YELLOW; GLUCOSE,URINE NEGATIVE (NEGATIVE); KETONES,URINE NEGATIVE (NEGATIVE); LEUKOCYTE ESTERASE,URINE NEGATIVE (NEGATIVE); NITRITE,URINE NEGATIVE (NEGATIVE); OCCULT BLOOD,URINE NEGATIVE (NEGATIVE); PROTEIN,URINE NEGATIVE (NEGATIVE); UROBILINOGEN,URINE 0.2 EU/dL (<2.0)
[2024-02-10 15:53] LABS: LACTIC ACID 1.2 mmol/L (0.4-2.0)
[2024-02-10] MEDS: Iopamidol 755 MG/ML 500 ML Multipack Bottle IVPUSH STA (16:57)
[2024-02-10 18:40] VITALS: BP 125/67; PULSE 70
== END 2024-02-10 18:42 | disposition home or self-care (01) ==
LOC: MW.ED 14:32
DX: R10.31 Right lower quadrant pain (principal); R10.84 Generalized abdominal pain; R10.32 Left lower quadrant pain; M19.90 Unspecified osteoarthritis, unspecified site; E66.9 Obesity, unspecified; Z79.82 Long term (current) use of aspirin; Z79.899 Other long term (current) drug therapy; Z88.1 Allergy status to other antibiotic agents; Z88.8 Allergy status to other drugs, medicaments and biological substances; Z91.018 Allergy to other foods; Z91.011 Allergy to milk products; Z91.040 Latex allergy status; Z75.8 Other problems related to medical facilities and other health care
CPT/HCPCS: 36415; 74177; 80053; 81003; 83605; 83690; 83735; 85025; 93005; 96361; 96374; 96375; 99284; J1885; J2405; J7030; Q9967

== ENCOUNTER 2024-08-10 20:25 | Emergency (ER) | payer MEDICARE, OTHER ==
[2024-08-10 20:46] LABS: BASOPHILS ABSOLUTE AUTO 0.04 K/uL (0.00-0.20); BASOPHILS PERCENT AUTO 0.6 % (0.0-1.0); EOSINOPHILS ABSOLUTE AUTO 0.05 K/uL (0.00-0.45); EOSINOPHILS PERCENT AUTO 0.8 % (0.0-6.0); HEMATOCRIT 35.3 % (37.0-47.0); HEMOGLOBIN 12.1 g/dL (12.0-16.0); IMMATURE GRAN ABSOLUTE AUTO 0.02 K/uL (0.00-0.05); IMMATURE GRAN PERCENT AUTO 0.3 % (0.0-0.4); LYMPHOCYTES ABSOLUTE AUTO 1.82 K/uL (1.00-4.80); LYMPHOCYTES PERCENT AUTO 29.2 % (24.0-44.0); MEAN CORPUSCULAR HEMOGLOBIN 31.4 pg (28.0-32.0); MEAN CORPUSCULAR HGB CONC 34.3 g/dL (32.0-36.0); MEAN CORPUSCULAR VOLUME 91.7 fL (83.0-99.0); MEAN PLATELET VOLUME 9.4 fL (9.4-12.3); MONOCYTES ABSOLUTE AUTO 0.34 K/uL (0.00-0.80); MONOCYTES PERCENT AUTO 5.4 % (0.0-8.0); NEUTROPHILS ABSOLUTE AUTO 3.97 K/uL (1.80-7.70); NEUTROPHILS PERCENT AUTO 63.7 % (41.0-71.0); PLATELET COUNT,PLT 163 K/uL (150-400); RED BLOOD CELL COUNT 3.85 M/uL (4.10-5.30); WHITE BLOOD CELL COUNT,WBC 6.24 K/uL (3.9-11.3)
[2024-08-10 21:20] LABS: CALCIUM 8.7 mg/dL (8.5-10.1); CARBON DIOXIDE,CO2 24.2 mmol/L (21.0-32.0); CREATININE 0.9 mg/dL (0.6-1.0); EST CRCL DRUG DOSING (CG) 48.11 mL/min; POTASSIUM,K 3.8 mmol/L (3.5-5.1)
[2024-08-10 23:23] VITALS: BP 130/55; PULSE 64
== END 2024-08-10 23:22 | disposition home or self-care (01) ==
LOC: MW.ED 20:25
DX: R07.9 Chest pain, unspecified (principal); E66.9 Obesity, unspecified; Z90.710 Acquired absence of both cervix and uterus; Z79.899 Other long term (current) drug therapy; Z79.82 Long term (current) use of aspirin; Z91.011 Allergy to milk products; Z91.040 Latex allergy status; Z88.8 Allergy status to other drugs, medicaments and biological substances; Z91.048 Other nonmedicinal substance allergy status; Z91.014 Allergy to mammalian meats; Z68.35 Body mass index [BMI] 35.0-35.9, adult
CPT/HCPCS: 36415; 71045; 71045-26; 80048; 84484; 85025; 93005; 99285

== ENCOUNTER 2024-11-27 14:43 | Inpatient (IN) | payer MEDICARE, OTHER ==
[2024-11-27] MEDS: Aspirin 81 MG Tab.Chew PO ONE (16:02)
[2024-11-27] MEDS: Sodium Chloride 0.9% 1,000 ML IV ONE (16:02)
[2024-11-27 16:11] LABS: APPEARANCE,URINE SLT CLOUDY; BILIRUBIN,URINE NEGATIVE (NEGATIVE); COLOR,URINE YELLOW; GLUCOSE,URINE NEGATIVE (NEGATIVE); KETONES,URINE NEGATIVE (NEGATIVE); LEUKOCYTE ESTERASE,URINE SMALL (NEGATIVE); NITRITE,URINE POSITIVE (NEGATIVE); OCCULT BLOOD,URINE MODERATE (NEGATIVE); PROTEIN,URINE NEGATIVE (NEGATIVE); UROBILINOGEN,URINE 0.2 EU/dL (<2.0)
[2024-11-27 16:32] LABS: EPITHELIAL CELLS,URINE FEW (NONE-FEW); RBC,URINE 0-2 (0-2/HPF)
[2024-11-27 16:33] LABS: BACTERIA,URINE 1+ (NEGATIVE)
[2024-11-27 16:42] LABS: BASOPHILS ABSOLUTE AUTO 0.02 K/uL (0.00-0.20); BASOPHILS PERCENT AUTO 0.4 % (0.0-1.0); EOSINOPHILS ABSOLUTE AUTO 0.06 K/uL (0.00-0.45); EOSINOPHILS PERCENT AUTO 1.2 % (0.0-6.0); HEMATOCRIT 35.8 % (37.0-47.0); IMMATURE GRAN ABSOLUTE AUTO 0.01 K/uL (0.00-0.05); IMMATURE GRAN PERCENT AUTO 0.2 % (0.0-0.4); LYMPHOCYTES ABSOLUTE AUTO 1.27 K/uL (1.00-4.80); MEAN CORPUSCULAR HEMOGLOBIN 31.7 pg (28.0-32.0); MEAN CORPUSCULAR HGB CONC 33.5 g/dL (32.0-36.0); MEAN CORPUSCULAR VOLUME 94.7 fL (83.0-99.0); MEAN PLATELET VOLUME 9.7 fL (9.4-12.3); MONOCYTES ABSOLUTE AUTO 0.37 K/uL (0.00-0.80); MONOCYTES PERCENT AUTO 7.3 % (0.0-8.0); NEUTROPHILS ABSOLUTE AUTO 3.34 K/uL (1.80-7.70); NEUTROPHILS PERCENT AUTO 65.9 % (41.0-71.0); PLATELET COUNT,PLT 136 K/uL (150-400); RED BLOOD CELL COUNT 3.78 M/uL (4.10-5.30); WHITE BLOOD CELL COUNT,WBC 5.07 K/uL (3.9-11.3)
[2024-11-27 17:17] LABS: A/G RATIO 1.4 (0.9-1.6); ALBUMIN 3.8 g/dL (3.4-5.0); BILIRUBIN TOTAL 0.7 mg/dL (0.2-1.0); CALCIUM 8.4 mg/dL (8.5-10.1); CARBON DIOXIDE,CO2 25.6 mmol/L (21.0-32.0); CREATININE 1.1 mg/dL (0.6-1.0); EST CRCL DRUG DOSING (CG) 37.64 mL/min; POTASSIUM,K 4.2 mmol/L (3.5-5.1); PROTEIN TOTAL,TP 6.6 g/dL (6.4-8.2); TSH ULTRASENSITIVE 5.01 uIU/mL (0.36-3.74)
[2024-11-27 17:42] LABS: T4 FREE 1.41 ng/dL (0.76-1.46)
[2024-11-27] MEDS: Iopamidol 755 MG/ML 500 ML Multipack Bottle IVPUSH STA (18:34)
[2024-11-27] MEDS: cefTRIAXone 1 GM in Sodium Chloride 0.9% 50 ML IV ONE (19:01)
[2024-11-27] MEDS: cefTRIAXone 1 GM in Water For Injection, Sterile 10 ML IVPUSH ONE (19:02)
[2024-11-27] MEDS: Iopamidol 755 MG/ML 500 ML Multipack Bottle IVPUSH ONE (22:30)
[2024-11-27] MEDS: Furosemide 40 MG/4 ML VIAL IVPUSH ONE (23:14)
[2024-11-27] MEDS ORDERED: Ondansetron 4 MG/2 ML SDV IVPUSH PRN (23:36)
[2024-11-27] MEDS ORDERED: Albuterol/Ipratropium 3.0-0.5 MG/3 ML Neb Soln NEB PRN (23:36)
[2024-11-27] MEDS ORDERED: Melatonin 3 MG Tab PO PRN (23:36)
[2024-11-28] MEDS: Acetaminophen 325 MG Tab PO PRN (00:22)
[2024-11-28] MEDS: Polyethylene Glycol 3350 Powder 17 GM Packet PO PRN (01:53)
[2024-11-28 06:34] LABS: BASOPHILS ABSOLUTE AUTO 0.04 K/uL (0.00-0.20); BASOPHILS PERCENT AUTO 0.8 % (0.0-1.0); EOSINOPHILS ABSOLUTE AUTO 0.07 K/uL (0.00-0.45); EOSINOPHILS PERCENT AUTO 1.4 % (0.0-6.0); HEMOGLOBIN 12.3 g/dL (12.0-16.0); IMMATURE GRAN ABSOLUTE AUTO 0.02 K/uL (0.00-0.05); IMMATURE GRAN PERCENT AUTO 0.4 % (0.0-0.4); LYMPHOCYTES ABSOLUTE AUTO 1.65 K/uL (1.00-4.80); LYMPHOCYTES PERCENT AUTO 33.1 % (24.0-44.0); MEAN CORPUSCULAR HEMOGLOBIN 30.8 pg (28.0-32.0); MEAN CORPUSCULAR HGB CONC 32.4 g/dL (32.0-36.0); MEAN PLATELET VOLUME 9.6 fL (9.4-12.3); NEUTROPHILS ABSOLUTE AUTO 2.91 K/uL (1.80-7.70); NEUTROPHILS PERCENT AUTO 58.3 % (41.0-71.0); PLATELET COUNT,PLT 149 K/uL (150-400); WHITE BLOOD CELL COUNT,WBC 4.99 K/uL (3.9-11.3)
[2024-11-28 06:50] LABS: CALCIUM 8.8 mg/dL (8.5-10.1); CARBON DIOXIDE,CO2 29.1 mmol/L (21.0-32.0); CREATININE 1.1 mg/dL (0.6-1.0); EST CRCL DRUG DOSING (CG) 37.64 mL/min; MAGNESIUM 2.2 mg/dL (1.8-2.4)
[2024-11-28] MEDS: cefTRIAXone 1 GM in Water For Injection, Sterile 10 ML IVPUSH SCH (08:37)
[2024-11-28] MEDS: Furosemide 40 MG/4 ML VIAL IVPUSH SCH (08:37)
[2024-11-28] MEDS: Enoxaparin 30 MG/0.3 ML Syringe SUBCUT SCH (08:38)
[2024-11-28] MEDS ORDERED: Furosemide 40 MG/4 ML VIAL IVPUSH SCH (09:00)
[2024-11-28] MEDS: Aspirin 81 MG Tab.Chew PO SCH (21:04)
[2024-11-29 06:33] LABS: BASOPHILS ABSOLUTE AUTO 0.03 K/uL (0.00-0.20); BASOPHILS PERCENT AUTO 0.7 % (0.0-1.0); EOSINOPHILS ABSOLUTE AUTO 0.08 K/uL (0.00-0.45); HEMOGLOBIN 12.9 g/dL (12.0-16.0); IMMATURE GRAN ABSOLUTE AUTO 0.01 K/uL (0.00-0.05); IMMATURE GRAN PERCENT AUTO 0.2 % (0.0-0.4); LYMPHOCYTES PERCENT AUTO 27.4 % (24.0-44.0); MEAN CORPUSCULAR HEMOGLOBIN 31.2 pg (28.0-32.0); MEAN CORPUSCULAR HGB CONC 33.9 g/dL (32.0-36.0); MEAN CORPUSCULAR VOLUME 91.8 fL (83.0-99.0); MEAN PLATELET VOLUME 9.3 fL (9.4-12.3); NEUTROPHILS ABSOLUTE AUTO 2.39 K/uL (1.80-7.70); NEUTROPHILS PERCENT AUTO 59.7 % (41.0-71.0); PLATELET COUNT,PLT 135 K/uL (150-400); RED BLOOD CELL COUNT 4.14 M/uL (4.10-5.30); WHITE BLOOD CELL COUNT,WBC 4.01 K/uL (3.9-11.3)
[2024-11-29 07:14] LABS: A/G RATIO 1.2 (0.9-1.6); ALBUMIN 3.7 g/dL (3.4-5.0); BILIRUBIN TOTAL 0.7 mg/dL (0.2-1.0); CALCIUM 8.7 mg/dL (8.5-10.1); EST CRCL DRUG DOSING (CG) 41.4 mL/min; MAGNESIUM 2.2 mg/dL (1.8-2.4); POTASSIUM,K 2.9 mmol/L (3.5-5.1); PROTEIN TOTAL,TP 6.7 g/dL (6.4-8.2)
[2024-11-29] MEDS: Enoxaparin 40 MG/0.4 ML Syringe SUBCUT SCH (08:49)
[2024-11-29] MEDS: Furosemide 40 MG/4 ML VIAL IVPUSH SCH (08:51)
[2024-11-29] MEDS: Potassium Chloride 20 MEQ Tab.ER PO ONE (11:54)
[2024-11-29 12:08] VITALS: BP 117/58; PULSE 59
== END 2024-11-29 13:00 | disposition home or self-care (01) | DRG 292 ==
LOC: MW.ED 14:43 → OBSVTOIN 21:18 → MW.MS 21:18
PROVIDERS: ADMIT Family Medicine; ATTEND Family Medicine
DX: I50.9 Heart failure, unspecified (principal); N39.0 Urinary tract infection, site not specified; I42.2 Other hypertrophic cardiomyopathy; Z66 Do not resuscitate; Z68.32 Body mass index [BMI] 32.0-32.9, adult; J30.9 Allergic rhinitis, unspecified; H54.7 Unspecified visual loss; Z91.048 Other nonmedicinal substance allergy status; N20.0 Calculus of kidney; M19.90 Unspecified osteoarthritis, unspecified site; Z88.1 Allergy status to other antibiotic agents; Z68.34 Body mass index [BMI] 34.0-34.9, adult; E66.9 Obesity, unspecified; M85.80 Other specified disorders of bone density and structure, unspecified site; E86.0 Dehydration; R31.9 Hematuria, unspecified; R00.1 Bradycardia, unspecified; K52.9 Noninfective gastroenteritis and colitis, unspecified; Z95.0 Presence of cardiac pacemaker; Z91.040 Latex allergy status; Z79.899 Other long term (current) drug therapy; Z90.49 Acquired absence of other specified parts of digestive tract; Z91.011 Allergy to milk products; Z90.710 Acquired absence of both cervix and uterus; Z79.82 Long term (current) use of aspirin; Z88.8 Allergy status to other drugs, medicaments and biological substances
CPT/HCPCS: 36415; 71045; 74177; 80053; 81001; 83690; 83735; 83880; 84439; 84443; 84484 ×2; 85025; 87086; 87088; 87186; 87428; 93005 ×2; A9270; J0696; J7030; Q9967; 71275; 71275-26; 80048; 93010; 96361; 96374; 99285; 99285-25; J1650